=== PATIENT | female | born 1975 | race Caucasian/White ===

== ENCOUNTER → 2017-03-04 09:51 | Outpatient (CLI) | payer BC ==
--- NOTE | 2017-03-04 10:54 | NUR ---
Nutrition education for bariatric surgery: S: Pt reports she lost 140# by diet and exercise 9 years ago but was unable to keep the weight off when her mother became ill. Pt loves to eat bread. Pt does not drink carbonated anything and does not like sweet foods. 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 O: 41 year old female with no medical issues Ht: 5'5" Wt: 250# IBW: 125# +/-10% BMI: 41.6 Pts highest adult wt: 270# Pts lowest adult wt: 130# A/P: Reviewed pre/post of diet, homework. Discussed post-op diet phases; liquids between meals; 3 ounce meal size; 1/2 cup stomach size; vitamin, mineral, calcium, vitamin D supplements for life; protein needs; reviewed sample menus; no straws, carbonation, alcohol; pouch stretching; problematic foods. Pt with very good understanding of information provided. RDN feels pt is going to make the necessary diet changes needed to be successful with long-term weight loss and maintenance. Provided pt with printed diet information and RDN name and phone number. RDN will be available if needed. Thank you for the consult.
== END ==
LOC: D.FANS 02-12 09:00
DX: Z01.818 Encounter for other preprocedural examination (principal)

== ENCOUNTER → 2017-03-14 07:59 | Outpatient (CLI) | payer BC | END | disposition home or self-care (01) | LOC: D.RAD 07:59 | DX: E66.01 Morbid (severe) obesity due to excess calories (principal); Z68.41 Body mass index [BMI] 40.0-44.9, adult ==

== ENCOUNTER 2017-04-25 09:33 | Day surgery (SDC) | payer BC ==
[~2017-04-25] VITALS: Ht 162.6 cm; Wt 107.3 kg
[2017-04-25] MEDS ORDERED: IBUPROFEN800 MG PO (10:31)
[2017-04-25 10:39] VITALS: BP 138/65; Ht 162.6 cm; Wt 107.3 kg
[2017-04-25 11:12] LABS: HEMATOCRIT 37.4 % (36.0-48.0); HEMOGLOBIN 11.8 g/dL (12-16); MCH 24.9 pg (26.0-34.0); MCHC 31.6 g/dL (31.0-37.0); MCV 78.9 fL (80.0-100.0); MEAN PLATELET VOLUME 11.2 fL (7.4-10.4); PLATELET COUNT 230 10x3/uL (130-400); RBC 4.74 10x6/uL (4.00-5.40); RDW 16.7 % (11.5-14.5); WBC 4.4 10x3/uL (4.8-10.8)
[2017-04-25 11:28] LABS: HCG SERUM NEGATIVE (NEGATIVE)
[2017-04-25 12:20] LABS: EOSINOPHILS 2 % (0-7); LYMPHOCYTES 24 % (15-50); MONOCYTES 6 % (2-11); NEUTROPHILS 66 % (40-80); PLATELET ESTIMATE NORMAL
--- NOTE | 2017-04-25 13:43 | NUR ---
1342 BACK FROM EGD. AWAKE AND TALKING RESP EVEN AND NONLABORED.
--- NOTE | 2017-04-25 18:53 | NUR ---
150-DR PEREZ TO SEE PATIENT AND REPORT ON PROCEDURE. 1515-D/C HOME AMBULATORY PER REQUEST
== END 2017-04-25 15:15 | disposition home or self-care (01) ==
LOC: D.OPS 09:33
PROVIDERS: Anesthesiology
DX: E66.01 Morbid (severe) obesity due to excess calories (principal); Z68.41 Body mass index [BMI] 40.0-44.9, adult; K29.50 Unspecified chronic gastritis without bleeding; K20.9 Esophagitis, unspecified; Z98.84 Bariatric surgery status; Z01.812 Encounter for preprocedural laboratory examination

== ENCOUNTER 2017-06-02 05:07 | Inpatient (IN) | payer BC ==
[2017-05-30 12:31] LABS: HEMATOCRIT 39.3 % (36.0-48.0); HEMOGLOBIN 12.3 g/dL (12-16); MCH 24.7 pg (26.0-34.0); MCHC 31.3 g/dL (31.0-37.0); MCV 79.1 fL (80.0-100.0); MEAN PLATELET VOLUME 11.8 fL (7.4-10.4); RBC 4.97 10x6/uL (4.00-5.40); RDW 16.2 % (11.5-14.5)
[~2017-06-02] VITALS: Ht 162.6 cm; Wt 119.1 kg
[2017-06-02] VITALS (13 sets, daily range): BP systolic 78–144; BP diastolic 48–79; BMI 40.9
[~2017-06-02 05:07] MED LIST: IBUPROFEN800 MG PO; MULTIPLE VITAMI1 TA1 PO
--- NOTE | 2017-06-02 11:00 | NUR ---
RECEIVED TO FLOOR FROM RECOVERY, DIRECTOR OF CONSERVATION SET UP, BED LOWEST POSITION, CALL LIGHT IN REACH, WILL CONTINUE TO MONITOR
--- NOTE | 2017-06-02 14:04 | OP ---
PATIENT NAME: CHERELLE STERLING MEDICAL RECORD: [id number] :73 LOCATION:[id number] ADMISSION DATE:06/02/17 SURGEON: DANILO PEREZ MD DATE OF OPERATION: 06/02/2017 SURGEON: Danilo Perez MD PREOPERATIVE DIAGNOSIS: Morbid obesity. POSTOPERATIVE DIAGNOSIS: Morbid obesity. PROCEDURES PERFORMED: 1. Revision of previous sleeve gastrectomy. 2. Pylorus sparing gastric bypass. ANESTHESIA: General. COMPLICATIONS: None. SPECIMENS: None. Case was clean contaminated. ESTIMATED BLOOD LOSS: 30 cc. OPERATIVE COURSE: After consent was obtained, the patient was taken to the operating room and placed in the supine position on the operating table. Next, general anesthesia was given via endotracheal intubation after a timeout was taken to confirm the correct patient and procedure. The abdomen was then prepped and draped in typical sterile fashion. Local anesthetic was injected just above the umbilicus. A stab incision was made with 11-blade scalpel. Using a 5 mm bladeless optical trocar, the abdomen was entered under direct laparoscopic vision. Adequate pneumoperitoneum was achieved. The abdominal cavity was inspected. No evidence of bowel injury. No evidence of bleeding. At this time, the patient was placed in the steep reverse Trendelenburg position. All the remaining trocars were placed, the abdomen was entered under direct laparoscopic vision. Two 5 mm trocars in the left lateral quadrant, 5 mm and 12 mm trocar in the right lateral quadrant and Carisa liver retractor in subxiphoid position. The left lobe of the liver was grasped and elevated. At this time, the previous sleeve gastrectomy was dissected along the antrum and pylorus. Dissection continued posteriorly along the first portion of the duodenum until approximately 2 cm of the duodenum were mobilized. At this time, the first portion of the duodenum was transected with a green load 60 mm KELLY stapler. Next, the terminal ileum was identified, 250 cm of small bowel were counted. At 250 cm from the terminal ileum, multiple 3-0 Vicryl stay sutures were used to saw the duodenum to the jejunum. Next, a backwall continuous, running suture was created using 3-0 PDS, the outer layer of the backwall was created with 3-0 Stratafix PDS suture. Enterotomies were made in the both limbs in the jejunum and duodenum. The inner layer was then closed with 3-0 PDS Stratafix suture. This was continued anteriorly creating a single layer anastomosis. The anterior layer was imbricated using 3-0 Vicryl suture. The ViSiGi device was placed in the stomach. Bowel clamps were placed in the efferent limbs of the jejunum. The stomach was inflated. Water was placed over the anastomosis, a small leak was identified. The area in question was reinforced with additional 3-0 Vicryl suture. Repeatedly test was performed, OPERATIVE REPORT [id number] CHERELLE STERLING which showed no evidence of leak. The duct was removed. The ViSiGi device was placed to suction after the bowel was decompressed. The ViSiGi device was removed and the suction removed from the abdomen. At this time, the remaining portion of the abdomen was copiously irrigated and suctioned. Careful attention was paid to hemostasis. The entire abdominal cavity was inspected. There was no evidence of bowel injury. No evidence of bleeding. At this time, all remaining instruments were removed from the abdomen. The 12 mm and 11 mm trocar site were closed with an 0 Vicryl suture and a Stu-Elvia suture passer under direct laparoscopic vision. At this time, all remaining instruments were removed. The abdomen was desufflated. Trocars were removed. Skin was closed with 4-0 Monocryl, Mastisol and Steri-Strips. At the end of the case, all needle and instrument counts were correct. No complications occurred. The patient extubated and transferred to the PACU in stable condition. TRANSINT:[id number] Voice Confirmation ID: [id number] DOCUMENT ID: [id number] DANILO PEREZ MD at 1404 CC: [id number] DICTATION DATE: 06/02/17 1029 PUBLIC UTILITIES SALES REPRESENTATIVE: 06/02/17 1248 ADM IN [place] [id number] [place] [address]
--- NOTE | 2017-06-02 15:05 | OP ---
PATIENT NAME: CHERELLE STERLING MEDICAL RECORD: [id number] :73 LOCATION:[facility] ADMISSION DATE:06/02/17 SURGEON: SEGUNDO BENDER MD DATE OF OPERATION: 06/02/2017 Operative and Assistance Note I assisted Dr. Hays with a SIPS procedure. I scrubbed in after the trocars and the liver retractor had been placed. My involvement in the procedure was some assistance with dissection, retraction of tissues, running the camera some, irrigation and aspiration. I sewed a portion of the gastrojejunal anastomosis. Then, I assisted with closure of the skin incisions. TRANSINT:[id number] Voice Confirmation ID: [id number] DOCUMENT ID: [id number] SEGUNDO BENDER MD at 1505 CC: [id number] DICTATION DATE: 06/02/17 1108 ONLINE MARKETING MANAGER: 06/02/17 1243 ADM IN [facility] [address] [place] [address]
--- NOTE | 2017-06-02 19:15 | NUR ---
PT IS SITTING ON COMMODE, HAD COME BACK FROM SURGERY AT 11, STILL UNABLE TO URINATE, PT PAIN IS AT A 10 FROM SCALE OF 0-10 WITH 10 BEING THE WORSE, GAVE PT BOLUS, 2MG ASSISTED PT BACK IN BED ADVISED WILL NEED TO DO A BLADDAR SCAN
--- NOTE | 2017-06-02 22:30 | NUR ---
CAME TO CHECK ON PT, PAIN IS STILL AT A 10 FROM SCALE OF 0-10 GAVE PT ANOTHER BOLUS 2MG, PT STILL HAS NOT URINATED, WILL DO BLADDAR SCAN
--- NOTE | 2017-06-02 23:44 | NUR ---
PATIENT STATED SHE HAS NOT VOIDED ALL DAY. DID A BLADDER SCAN, SHE HAD 315ML. ASKED PATIENT IF SHE IS WILLING TO TAKE A WALK IN THE [place], SHE ASKED IF SHE CAN TRY TO URINATE FIRST. ASSISTED PATIENT SITTING UP ON THE SIDE OF THE BED. SHE VERBALIZED FEELING DIZZY. SHE STATED "EVERYTIME I SIT UP I GET REALLY DIZZY." PATIENT SAT UP FOR ABOUT 3 MINUTES BEFORE FEELING THE DIZZINESS SUBSIDE. ASSISTED PATIENT UP THE BATHROOM. TURNED THE SHOWER ON, FOR THE NOISE TO HELP PATIENT VOID. SHE STATED SHE WANTS TO SIT THERE FOR AWHILE. TOLD PATIENT TO PULLED THE BATHROOM EMERGENCY STRING WHEN SHE IS FINISHED. SHE AGREED. IN ROOM.
[2017-06-03] VITALS: BP 133/73
--- NOTE | 2017-06-03 00:04 | NUR ---
SPOKE WITH ABOUT PATIENT. SEE ORDERS.
--- NOTE | 2017-06-03 00:12 | NUR ---
CHECKED IV PATENCY. FLUSHED WITH A 10ML FLUSH AND ASPIRATED BLOOD RETURN. STARTED THE FIRST BOLUS.
--- NOTE | 2017-06-03 01:15 | NUR ---
PT 1ST N/S BOLUS COMPLETE, STARTED SECOND BAG. STATED FEELS BETTER BUT STILL NO URGE TO URINATE WILL CONTINUE TO MONITOR
[2017-06-03 04:00] VITALS: BP 132/78
--- NOTE | 2017-06-03 04:00 | NUR ---
IN AND OUT CATH PERFORMED AT THIS TIME. NO DIFFICULTY WITH INSERTION. RECIEVED BACK 850ML CONCENTRATED, DARK URINE. PT TOLERATED WELL.
--- NOTE | 2017-06-03 05:34 | NUR ---
CHIEF WHARFINGER CAME AND ADVISED PT BP WAS TAKEN IN 3 DIFFERENT PLACES WITH DIFFERENT READINGS AND PT PULSE IS HIGH, TOOK PT'S BLOD PRESSURE MANUALLY AND BP IS AT 132/78 PULSE WAS AT 128. PT IS CONCERNED DUE TO HX OF HEART PROBLEMMS ON FATHER'S SIDE. PT STATED SHE WILL TRY AND REST UNTIL DOCTOR ARRIVES IN MORNING. I&O COMPLETED, ABLE TO DRAW 850. PT STATED ABD AREA STILL PAINFUL. CONTINUE TO MONITOR
--- NOTE | 2017-06-03 07:46 | NUR ---
AM ROUNDS - PT AWAKE IN BED. NO YELLOW BAND ON. SCD ARE OFF AT THIS TIME. PT C/O PAIN TO ABD/BACK. IV TO LEFT HAND, LR AT 150CC/HR AND MORPHINE WEIGHING STATION OPERATOR. BED AT LOWEST POSITION. SIDE RAILS UP X2. CALL CHRISTIANSON IN USE. WILL CONTINUE TO MONITOR
--- NOTE | 2017-06-03 07:53 | NUR ---
Patient Name: CHERELLE STERLING Admission Status: Elective Accout number: [id number] Admission Date: 06-02-2017 : 1975 Admission Diagnosis: Attending: KATY Current LOS: 1 Anticipated DC Date: 06-04-2017 Planned Disposition: Home Primary Insurance: [employer] [place] Discharge Planning Comments: CM MET WITH PATIENT REGARDING D/C NEEDS AND PLANS. PATIENT STATED SHE LIVES WITH HER (VANESSA) AND HE WILL DRIVE HER HOME AT DISCHARGE. PATIENT STATED THERE ARE 3 STEPS TO ENTER HOME AND ONE STAIRCASE W/RAILS INSIDE. PATIENT STATED SHE DOES NOT HAVE TO USE STAIRCASE. PATIENT IS INDEPENDENT WITH HER CARE AND HAS NO DME AT HOME. PATIENTS PCP DR. BRAMBILA AT [facility] IN [place]. (PATIENT SPELLED THE NAME). PATIENTS PHARMACY IS [facility]. PATIENT DOES NOT WANT HOME HEALTH AT THIS TIME. CM WILL CONTINUE TO FOLLOW PATIENT WITH D/C NEEDS AND PLANS. PCP DR. BRAMBILA AT [facility] - [phone] VANESSA (SPOUSE) [phone] Medical Director Occupational Health: Neginadama Zafar Is the patient Alert and Oriented? Yes 0 * How many steps to enter\exit or inside your home? 3 0 * PCP DR. BRAMBILA [facility] PATIENT SPELLED THE NAME 0 * Pharmacy [facility] 0 * Preadmission Environment Home with Family 0 * ADLs Independent 0 * Equipment None 0 * List name and contact numbers for known caregivers / representatives who currently or will assist patient after discharge: VANESSA (SPOUSE) [phone] * Community resources currently utilized None 0 * Additional services required to return to the preadmission environment? Yes 0 * Can the patient safely return to the preadmission environment? Yes 0 * Has this patient been hospitalized within the prior 30 days at any hospital? No 0 Grand Total: 0
--- NOTE | 2017-06-03 08:00 | NUR ---
PT AOX4 RESP EVEN AND NONLABORED PT DENIES NEEDS AT THIS TIME IV TO LEFT HAND PATENT AND INTACT AT THIS TIME SRX2 BED AT LOWEST POSITION CALL LIGHT WITHIN REACH WILL CONTINUE TO MONITOR
[2017-06-03 11:42] LABS: ALBUMIN 2.9 g/dL (3.4-5.0); ANION GAP 17.6 mmol/L (8-16); BILIRUBIN - TOTAL 0.86 mg/dL (0.2-1.3); CALCIUM 7.6 mg/dL (8.5-10.1); CARBON DIOXIDE 20.3 mmol/L (21.0-32.0); CREATININE - SERUM 1.1 mg/dL (0.6-1.3); MAGNESIUM - SERUM 1.7 mg/dL (1.8-2.4); POTASSIUM - SERUM 3.9 mmol/L (3.5-5.1); PROTEIN - SERUM 6.8 g/dL (6.4-8.2)
--- NOTE | 2017-06-03 15:28 | NUR ---
NUTRITION MONITORING & EVAL CHART REVIEWED, PT VISIT. PT WITH NO QUESTIONS ~ DIET. PT STATES SHE UNDERSTANDS DIET INFORMATION. RD FOLLOWING
--- NOTE | 2017-06-03 21:29 | NUR ---
SPOKE WITH MATIAS IN RT, PER EKG PT IS TACHYCARDIC WHEN AWAKE IN IN PAIN, WHEN SLEEPING HR IS BACK DOWN TO 60. PT RESP IS AT 89 RT PUT 3L ON AND PT BACK UP TO 97 WHEN SHE LOWERED IT TO 2L PT WENT BACK DOWN TO 93. PT IS LYING IN BED EYES CLOSED AND RESTING, WILL CONTINUE TO MONITOR PT
[2017-06-03 23:59] VITALS: BP 140/89
[2017-06-04] VITALS (13 sets, daily range): BP systolic 100–149; BP diastolic 23–100; Ht 162.6 cm; Wt 119.1 kg
[2017-06-04 06:58] LABS: BASOPHILS 0 % (0-2); EOSINOPHILS 0 % (0-7); HEMATOCRIT 40.2 % (36.0-48.0); HEMOGLOBIN 12.4 g/dL (12-16); IMMATURE GRANULOCYTES 0.4 % (0-5); LYMPHOCYTES 2.6 % (15-50); MCH 24.7 pg (26.0-34.0); MCHC 30.8 g/dL (31.0-37.0); MCV 80.1 fL (80.0-100.0); MEAN PLATELET VOLUME 11.1 fL (7.4-10.4); MONOCYTES 9.2 % (2-11); NEUTROPHILS 87.8 % (40-80); RBC 5.02 10x6/uL (4.00-5.40); WBC 13.3 10x3/uL (4.8-10.8)
[2017-06-04 07:01] LABS: PLATELET COUNT 287 10x3/uL (130-400)
[2017-06-04 07:18] LABS: ALBUMIN 2.5 g/dL (3.4-5.0); BILIRUBIN - TOTAL 0.75 mg/dL (0.2-1.3); CALCIUM 7.6 mg/dL (8.5-10.1); CARBON DIOXIDE 22.1 mmol/L (21.0-32.0); POTASSIUM - SERUM 4.1 mmol/L (3.5-5.1); PROTEIN - SERUM 6.5 g/dL (6.4-8.2)
--- NOTE | 2017-06-04 07:46 | NUR ---
PT AWAKE AND ALERT. HOB AT 45 DEGREES. PT ON 5L O2 VIA NASAL CANULA. O2 SAT 97. TACHYCARDIC PULSE RATE 133. RATES PAIN 10/10. MORPHINE RUG DYER HELPER IN USE 1MG Q 10MIN WITH 10MG/4HR LOCK OUT. R-FOREARM PERIPHERAL IV WITH LR @ 150ML/HR. IN THE ROOM. PT TRANSPORTED TO OR FOR DIAGNOSTIC LAPOROSCOPIC PROCEDURE.
--- NOTE | 2017-06-04 08:42 | NUR ---
DR PEREZ DECIDED AND PLACED CVL AFTER GENERAL ANESTHESIA, PABLO.
--- NOTE | 2017-06-04 11:30 | NUR ---
PT TO ICU AT THIS TIME FROM RECOVERY. PT ALERT AND ORIENTED, STILL TIRED. S1S2 NOTED, ST PER CM. BREATHING SHALLOW, 02 ACCEPTABLE. FAMILY TO BEDSIDE TO SEE PT. SEE SHIFT ASSESSMENT FOR DETAILS.
--- NOTE | 2017-06-04 11:37 | NUR ---
CONSULTED ANESTHESIA REGARDING ELEVATED HEART RATE 135 BPM. GIVEN VERBAL ORDERS PER DR TOLBERT TO GIVE METOPROLOL 5MG IV X1.
[2017-06-04 12:31] LABS: BASOPHILS 0 % (0-2); EOSINOPHILS 0 % (0-7); HEMATOCRIT 32.2 % (36.0-48.0); IMMATURE GRANULOCYTES 0.2 % (0-5); LYMPHOCYTES 11.7 % (15-50); MCH 24.8 pg (26.0-34.0); MCHC 31.1 g/dL (31.0-37.0); MCV 79.9 fL (80.0-100.0); MEAN PLATELET VOLUME 11.3 fL (7.4-10.4); MONOCYTES 9.4 % (2-11); NEUTROPHILS 78.7 % (40-80); PLATELET COUNT 240 10x3/uL (130-400); RBC 4.03 10x6/uL (4.00-5.40); WBC 4.7 10x3/uL (4.8-10.8)
[2017-06-04 12:46] LABS: ANION GAP 11.8 mmol/L (8-16); CARBON DIOXIDE 19.5 mmol/L (21.0-32.0); CREATININE - SERUM 1.7 mg/dL (0.6-1.3); POTASSIUM - SERUM 4.3 mmol/L (3.5-5.1)
[2017-06-04 12:49] LABS: CALCIUM 6.3 mg/dL (8.5-10.1)
--- NOTE | 2017-06-04 12:50 | NUR ---
GIVEN VERBAL ORDERS TO TRANSFER THIS PATIENT TO ICU PER DR PEREZ.
--- NOTE | 2017-06-04 13:00 | NUR ---
DEVELOPMENT INTERN PUMP IN PLACE, PT PAIN SEEMS MANAGABLE AT THIS TIME. PT DENIES ANY OTHER NEEDS, WILL CONT TO MONITOR.
--- NOTE | 2017-06-04 13:02 | NUR ---
CALLED LEARNING DISABILITIES TEACHER, ISABELL GUILLORY RN AT 1115 TO INFORM HIM TO CHANGE THIS PATIENT'S STATUS FROM A REGULAR FLOOR BED TO AN ICU BED. HE WILL CALL US BACK WITH A ROOM.
--- NOTE | 2017-06-04 15:00 | NUR ---
PT FAMILY AT BEDSIDE FOR VISITATION. UPDATE PROVIDED. PT RESTING COMFORTABLY.
--- NOTE | 2017-06-04 17:00 | NUR ---
PT RECD PRN MEDICATION, HR LOWER BUT REMAINS ST.
--- NOTE | 2017-06-04 17:06 | OP ---
PATIENT NAME: CHERELLE STERLING MEDICAL RECORD: [id number] :73 LOCATION:[facility] D.2307 ADMISSION DATE:06/02/17 SURGEON: DANILO PEREZ MD DATE OF OPERATION: 06/04/2017 SURGEON: Danilo Perez MD. PREOPERATIVE DIAGNOSES: 1. Peritonitis. 2. Anastomotic leak. POSTOPERATIVE DIAGNOSES: 1. Peritonitis. 2. Anastomotic leak. PROCEDURES PERFORMED: 1. Diagnostic laparoscopy with conversion to exploratory laparotomy. 2. Abdominal washout. 3. Revision of duodenojejunostomy anastomosis. 4. Insertion of a left subclavian central venous line. ANESTHESIA: General. COMPLICATIONS: None. SPECIMENS: Small bowel. Case was grossly contaminated. OPERATIVE COURSE: After consent was obtained, the patient was taken to the operating room and placed in supine position on the operating table. Next, general anesthesia was given via endotracheal intubation after a timeout was performed to confirm the correct patient and procedure. Thereafter, the abdomen was prepped and draped in typical sterile fashion. Previous incisions were opened with an 11-blade scalpel. An 11-mm bladeless optical trocar was placed in the supraumbilical position. The abdomen was entered under direct laparoscopic vision. Adequate pneumoperitoneum was achieved. There was gross peritonitis in the abdomen. There was a large amount of fluid within the abdominal cavity. At this time, the Carisa retractor was re-placed, as well as the 12-mm trocar and 5-mm trocar in the right lateral quadrant under direct laparoscopic vision. The bowel was meticulously and slowly mobilized, exposing the duodenojejunostomy anastomosis. There was a significant amount of purulent exudate. When the stomach was mobilized, there was a small hole in the posterior suture line due to the extensiveness of the peritonitis and bile duct dilatation, I did not feel safe to proceed laparoscopically. At this time, all instruments and trocars were removed. A small upper midline incision was made. Dissection continued to the level of the midline fascia using electrocautery. The midline fascia was opened with a 15-blade scalpel. The remaining portion of the incision was then opened under direct vision with electrocautery. An Damian retractor was placed. The stomach and small bowel anastomosis were extracorporealized. The sutures were removed with Metzenbaum scissors. A small bowel resection was performed using the KELLY linear cutting stapler. Next, we traveled approximately 50 cm proximal to the small bowel anastomosis. We freshened the edges of the first portion of the duodenum with Metzenbaum scissors. A hand-sewn duodenojejunostomy was performed using 3-0 Vicryl suture. OPERATIVE REPORT [id number] CHERELLE STERLING Tay The suture line was then imbricated in a Lembert fashion using 3-0 Vicryl suture. The abdomen was irrigated with approximately 4 L of warm normal saline. A TATO drain was placed through the left upper quadrant trocar and placed posterior to the duodenojejunostomy. A second TATO drain was placed through the right lateral 5-mm trocar and placed in the pelvis to drain all remaining irrigation. At this time, additional irrigation was performed. There was no evidence of bowel injury. No evidence of bleeding, no evidence of leak. At this time, the midline incision was then closed with #1 looped PDS. Skin was closed with bety. TATO drains were secured with 2-0 nylon suture. At the end of the case, all needle and instrument counts were correct. No complications occurred. The patient extubated and transferred to the PACU in stable condition. TRANSINT:[id number] Voice Confirmation ID: [id number] DOCUMENT ID: [id number] DANILO PEREZ MD at 1706 CC: [id number] DICTATION DATE: 06/04/17 1017 DIRECTOR OF SPA AND GUEST EXPERIENCE: 06/04/17 1410 ADM IN [place] [id number] [place] [address]
--- NOTE | 2017-06-04 19:20 | NUR ---
ASSESSMENT COMPLETE. S1S2. SINUS TACHYCARDIA SHOWING ON MONITOR. PT C/O PAIN TO ABD. LAP SITES X6. 2 TATO DRAIN TO RIGHT AND LEFT LOWER ABD; COMPRESSED BLOODY DRAINAGE NOTED. RADIAL AND PEDAL PULSES PALPATED. ON 5L NC O2 SAT 100%. BRENNAN IN PLACE; DARK URINE ON COLLECTION BAG. RIGHT HAND PIV D/C'D WITH CATH INTACT. DRESSING APPLIED. SCD IN PLACE. LEFT SUBCLAVIAN CVL; PATENT. AAO. PERRLA.
--- NOTE | 2017-06-04 20:37 | NUR ---
PT UP OUT OF BED PER ORDERS. PT HAD DIFFICULTY GETTING TO BEDSIDE TO STAND. 2 PERSON ASSIST. C/O SLIGHT DIZZINESS. SAT AT BEDSIDE UNTIL RESOLVED. AMBULATED TO CHAIR. BALANCE STEADY. SHUFFLED GAIT; BUT HELD STANCE. C/O SOB UPON SITTING IN CHAIR. O2 SAT 100% ON 6L NC. TACHYPNEA NOTED; RESOLVED AFTER A FEW MINUTES.
--- NOTE | 2017-06-04 21:30 | NUR ---
NO FAMILY OR VISITORS DURING VISITATION.
--- NOTE | 2017-06-04 22:00 | NUR ---
PT SITTING IN CHAIR AT BEDSIDE. SLIGHTLY DROWSY. RESPONDS TO VERBAL STIMULI.
--- NOTE | 2017-06-04 23:15 | NUR ---
REASSESSMENT COMPLETE. NO ACUTE CHANGES FROM PREVIOUS ASSESSMENT. NO DISTRESS NOTED. SEE FLOW SHEET FOR DETAILS.
--- NOTE | 2017-06-04 23:30 | NUR ---
PT ASSISTED BACK TO BED. 2 PERSON ASSIST. PT HAD INCREASE IN BALANCE AND STEADIER GAIT. WEAKNESS NOTED. PT C/O SOB ON EXERTION.
[2017-06-05] VITALS (15 sets, daily range): BP systolic 117–158; BP diastolic 55–96
--- NOTE | 2017-06-05 03:10 | NUR ---
REASSESSMENT COMPLETE. NO ACUTE CHANGES FROM PREVIOUS ASSESSMENT. VSS. NO DISTRESS NOTED. WILL CONTINUE TO MONITOR.
[2017-06-05 04:24] LABS: BASOPHILS 0 % (0-2); EOSINOPHILS 0 % (0-7); HEMOGLOBIN 8.9 g/dL (12-16); IMMATURE GRANULOCYTES 0.3 % (0-5); LYMPHOCYTES 6.3 % (15-50); MCH 25.1 pg (26.0-34.0); MCHC 31.8 g/dL (31.0-37.0); MCV 78.9 fL (80.0-100.0); MEAN PLATELET VOLUME 11.3 fL (7.4-10.4); NEUTROPHILS 86.4 % (40-80); PLATELET COUNT 197 10x3/uL (130-400); RBC 3.55 10x6/uL (4.00-5.40); RDW 17.3 % (11.5-14.5); WBC 5.8 10x3/uL (4.8-10.8)
[2017-06-05 04:40] LABS: ANION GAP 11.8 mmol/L (8-16); CARBON DIOXIDE 21.8 mmol/L (21.0-32.0); MAGNESIUM - SERUM 1.7 mg/dL (1.8-2.4); POTASSIUM - SERUM 4.6 mmol/L (3.5-5.1)
[2017-06-05 04:44] LABS: CALCIUM 6.9 mg/dL (8.5-10.1); CREATININE - SERUM 2.2 mg/dL (0.6-1.3)
--- NOTE | 2017-06-05 05:07 | NUR ---
PT RESTING; EYES CLOSED. VSS. NO DISTRESS NOTED. PRN LOPRESSOR GIVEN PER ORDERS. SEE EMAR FOR DETAILS.
--- NOTE | 2017-06-05 07:00 | NUR ---
PT ATTEMPTING TO REST AT THIS TIME WITH NO COMPLAINTS. COMPLETE SHIFT ASSESSMENT DOCUMENTED PER FLOWSHEET. VITAL SIGNS STABLE. CUPS THROWN AWAY IN ROOM DUE TO NPO ORDER. WILL VERIFY WITH DR PEREZ.
--- NOTE | 2017-06-05 08:00 | NUR ---
DR PEREZ STATES PT IS TO BE NPO WITH ICE CHIPS. TRANSFER ORDERS IN COMPUTER AND FAXED TO WEB MACHINE TENDER. VITAL SIGNS STABLE. WILL CONTINUE TO MONITOR
--- NOTE | 2017-06-05 12:30 | NUR ---
PT UP TO CHAIR WITH MODERATE ASSISTANCE. GIVEN TRAY WITH ICE CHIPS PER REQUEST. CALL LIGHT WITHIN REACH AND PT USING COLLECTION ADMINISTRATOR NEEDED. VITAL SIGNS STABLE.
--- NOTE | 2017-06-05 15:00 | NUR ---
PT REMAINS UP IN CHAIR AND RESTING AT THIS TIME. NO CHANGES FROM PREVIOUS DOCUMENTATION. WILL CONINUE TO MONITOR. VITAL SIGNS STABLE
--- NOTE | 2017-06-05 19:00 | NUR ---
REPORT REC'D, PT CARE ASSUMED. ASSESSMENT COMPLETED PER FLOW SHEETS. PT SITTING IN CHAIR WATCHING TV, A/OX4, C/O PAIN TO ABD 5 ON SCALE 1 TO 10, DEDICATED DRIVER PUMP USES, ST ON CM WITH HR AT 106, LUNG SOUNDS DIMINISHED TO ALL [place], O2SAT 97% ON 2L VIA NC, UNLABORED. LEFT CVL INTACT CLEAN AND DRY, INFUSING IV FLUIDS PER ORDER. ABD INCISIONS SITE C,D,I, TATO DRAINS X2 INTACT TO GRAVITY, BULBS COMPRESSED. BRENNAN INTACT TO GRAVITY WITH CONC, YELLOW DRAINAGE TO BAG. PPP, CALL LIGHT AND BST IN REACH. CONT TO MONITOR.
--- NOTE | 2017-06-05 21:00 | NUR ---
ASSISTED PT BACK TO BED FROM CHAIR WITH X2 NURSES. TREE DOCTOR USED PER PT BEFORE TRANSFER. REPOSITONED IN BED FOR COMFORT. PILLOWS IN USE FOR SUPPORT. CALL LIGHT IN REACH. ICE CHIPS PROVIDED PER REQUEST. CPOC.
--- NOTE | 2017-06-05 23:00 | NUR ---
REASSESSMENT COMPLETED. SEE FLOW SHEETS FOR ALL FINDINGS. NO ACUTE SIGNS OF DISTRESS NOTED. VSS. SR ON CM. REPOSITIONED SELF IN BED FOR COMFORT. SURGICAL NURSE PRACTITIONER USES PRN. CALL LIGHT IN REACH. CPOC.
[2017-06-06] VITALS (13 sets, daily range): BP systolic 125–148; BP diastolic 60–91
--- NOTE | 2017-06-06 01:00 | NUR ---
PT RESTING QUIETLY WITHOUT DISTRESS. VSS, NO NEEDS VOICES AT THIS TIME. CALL LIGHT IN REACH. CPOC,.
--- NOTE | 2017-06-06 03:00 | NUR ---
REASSESSMENT COMPLETED PER FLOW SHEETS. PT RESTING QUIETLY WITHOUT DIFFIC. NO ACUTE CHANGES NOTED ON PT'S STATUS. SR ON CM, VSS. NO NEEDS VOICES AT THIS TIME. CALL LIGHT IN REACH. CPOC.
[2017-06-06 05:08] LABS: BASOPHILS 0 % (0-2); EOSINOPHILS 1.8 % (0-7); HEMATOCRIT 23.8 % (36.0-48.0); HEMOGLOBIN 7.6 g/dL (12-16); IMMATURE GRANULOCYTES 0.9 % (0-5); LYMPHOCYTES 9.6 % (15-50); MCH 24.8 pg (26.0-34.0); MCHC 31.9 g/dL (31.0-37.0); MCV 77.5 fL (80.0-100.0); MEAN PLATELET VOLUME 10.3 fL (7.4-10.4); MONOCYTES 5.7 % (2-11); PLATELET COUNT 170 10x3/uL (130-400); RBC 3.07 10x6/uL (4.00-5.40); RDW 17.5 % (11.5-14.5); WBC 4.6 10x3/uL (4.8-10.8)
[2017-06-06 05:17] LABS: CARBON DIOXIDE 22.8 mmol/L (21.0-32.0); CREATININE - SERUM 1.7 mg/dL (0.6-1.3)
[2017-06-06 05:19] LABS: MAGNESIUM - SERUM 2.4 mg/dL (1.8-2.4); POTASSIUM - SERUM 3.8 mmol/L (3.5-5.1)
--- NOTE | 2017-06-06 08:14 | NUR ---
UP IN BED RESTING AT THIS TIME. NO ACUTE DISTRESS NOTED. RESPITATIONS STEADY AND UNLABORED. AWAKENS WHEN SPOKEN TO. NO ACTIVE BLEEDING NOTED. WILL CONTINUE PLAN OF CARE.
--- NOTE | 2017-06-06 08:38 | NUR ---
DR PEREZ HERE SEEING PT AT THIS TIME, ORDERS RECIEVED.
--- NOTE | 2017-06-06 09:49 | NUR ---
RT TATO DRAIN DC AT THIS TIME PER ORDERS. NOTED 15ML CLEAR RED FLUID INTO TATO DRAIN WHEN DCD. PT SITTING UP IN CHAIR BESIDE BED AT THIS TIME. NO ACUTE DISTRESS NOTED. WILL CONTINUE PLAN OF CARE.
--- NOTE | 2017-06-06 10:17 | NUR ---
Nutrition follow-up: Diet advanced to post-gastrectomy bariatric diet (30 ml Q 30 minutes) Wt: 255# Labs reviewed RDN following.
[2017-06-06 12:06] LABS: BASOPHILS 0 % (0-2); EOSINOPHILS 3.4 % (0-7); HEMATOCRIT 23.9 % (36.0-48.0); HEMOGLOBIN 7.6 g/dL (12-16); IMMATURE GRANULOCYTES 0.8 % (0-5); LYMPHOCYTES 12.8 % (15-50); MCH 24.7 pg (26.0-34.0); MCHC 31.8 g/dL (31.0-37.0); MCV 77.6 fL (80.0-100.0); MEAN PLATELET VOLUME 9.7 fL (7.4-10.4); MONOCYTES 4.6 % (2-11); NEUTROPHILS 78.4 % (40-80); PLATELET COUNT 165 10x3/uL (130-400); RBC 3.08 10x6/uL (4.00-5.40); RDW 17.6 % (11.5-14.5); WBC 4.8 10x3/uL (4.8-10.8)
[2017-06-06 12:25] LABS: ANION GAP 12.5 mmol/L (8-16); CALCIUM 7.2 mg/dL (8.5-10.1); CREATININE - SERUM 1.6 mg/dL (0.6-1.3); POTASSIUM - SERUM 3.5 mmol/L (3.5-5.1); VANCOMYCIN - TROUGH 19.7 ug/mL (10.0-20.0)
--- NOTE | 2017-06-06 12:48 | NUR ---
UP IN CHAIR IN ROOM WATCHING TV AT THIS TIME. FAMILY AT BEDSIDE. NO ACUTE DISTRESS NOTED. PT DENIES ANY NEEDS. WILL CONTINUE PLAN OF CARE.
--- NOTE | 2017-06-06 13:26 | NUR ---
LEFT UNIT FOR CT AT THIS TIME. NO ACUTE DISTRESS NOTED. LEFT VIA WHEELCHAIR ACCOMPANINED BY HOSPITAL STAFF. WILL CONTINUE PLAN OF CARE.
[2017-06-06] MEDS ORDERED: MEPERIDINE HCL50 MG PO (13:42)
[2017-06-06] MEDS ORDERED: LEVAQUIN500 MG PO (13:42)
--- NOTE | 2017-06-06 13:46 | NUR ---
RETURNED FROM CT AT THIS TIME VIA WHEELCHAIR AT THIS TIME. TOTAL LINEN CHANGE PROVIDED AT THIS TIME. DR PEREZ ON FLOOR MAKING ORDERS AT THIS TIME. NOTIFIED OF LOW H&H, NO NEW ORDERS. NO ACUTE DISTRESS NOTED. WILL CONTINUE PLAN OF CARE.
[2017-06-06] MEDS ORDERED: ZOFRAN ODT4 MG/UDTAB PO (14:02)
--- NOTE | 2017-06-06 14:21 | NUR ---
PER DR PEREZ: PABLITO BRENNAN IN AM, PABLITO TITUS TATO DRAIN IN AM, WEAN O2 TO ROOM AIR. PT TO BE DISCHARGED HOME TOMORROW AT NOON.
--- NOTE | 2017-06-06 14:51 | NUR ---
BLADDER TRAINING INITIATED AT THIS TIME. PT ABLE TO NOTIFY STAFF WHEN FEELING URGE TO URINATE. NO ACUTE DISTRESS NOTED. WILL CONTINUE PLAN OF CARE.
--- NOTE | 2017-06-06 15:23 | NUR ---
UP IN CHAIR BESIDE BED AT THIS TIME. PT STATES COMFORT. DENIES ANY NEEDS. FAMILY IN ROOM SPEAKING WITH PT. NO ACUTE DISTRESS NOTED. WILL CONTINUE PLAN OF CARE.
--- NOTE | 2017-06-06 17:18 | NUR ---
UP IN ROOM AT THIS TIME WATCHING TV. NO ACUTE DISTRESS NOTED. DENIES ANY NEEDS. WILL CONTINUE PLAN OF CARE.
--- NOTE | 2017-06-06 19:00 | NUR ---
REPORT RECEIVED AND ASSESSMENT COMPLETED. SEE FLOWSHEET FOR FULL DETAILS. PT IS POSTGASTRIC SURGERY BY DR PEREZ. TATO DRAIN REMOVED EARLIER. LEFT SIDE STILL REMAINS. PT IS A X-CHARAN. WILL MONITOR THROUGHOUT SHIFT.
--- NOTE | 2017-06-06 21:00 | NUR ---
2100 MEDS GIVEN. NO CHANGES IN STATUS AT THIS TIME. VSS WILL CONTINUE TO MONITOR.
--- NOTE | 2017-06-06 23:00 | NUR ---
REASSESSMENT COMPLETED. SEE FLOWSHEET FOR FULL DETAILS. NO CHANGES IN STATUS AT THIS TIME.
--- NOTE | 2017-06-06 23:00 | NUR ---
NO CHANGES IN PT STATUS AT THIS TIME. WILL CONTINUE TO MONITOR
[2017-06-07] VITALS (11 sets, daily range): BP systolic 120–149; BP diastolic 63–91
--- NOTE | 2017-06-07 01:07 | NUR ---
PT ASSISTED TO BED TO SLEEP. NO OTHER CHANGES IN STATUS AT THIS TIME. VSS. WILL CONTINUE TO MONITOR
--- NOTE | 2017-06-07 03:00 | NUR ---
NO CHANGES IN PT STATUS AT THIS TIME. PT IS IN BED SLEEPING VSS. BED IN LOW POSITION ALL PERSONAL ITEMS AND CALL LIGHT IN REACH. WILL MONITOR
--- NOTE | 2017-06-07 05:00 | NUR ---
PT LABS IN. H&H DECREASED AGAIN. WILL NOTIFY POTASSIUM 3.1. WILL TREAT PER PROTOCOL.
[2017-06-07 05:18] LABS: BASOPHILS 0 % (0-2); EOSINOPHILS 3.5 % (0-7); HEMATOCRIT 22.8 % (36.0-48.0); IMMATURE GRANULOCYTES 0.7 % (0-5); MCH 24.3 pg (26.0-34.0); MCHC 31.1 g/dL (31.0-37.0); MCV 78.1 fL (80.0-100.0); MEAN PLATELET VOLUME 10.1 fL (7.4-10.4); MONOCYTES 7.4 % (2-11); NEUTROPHILS 73.4 % (40-80); PLATELET COUNT 186 10x3/uL (130-400); RBC 2.92 10x6/uL (4.00-5.40); RDW 17.7 % (11.5-14.5); WBC 4.6 10x3/uL (4.8-10.8)
[2017-06-07 05:20] LABS: HEMOGLOBIN 7.1 g/dL (12-16)
[2017-06-07 05:28] LABS: ANION GAP 13.6 mmol/L (8-16); CALCIUM 7.4 mg/dL (8.5-10.1); CARBON DIOXIDE 21.5 mmol/L (21.0-32.0); CREATININE - SERUM 1.5 mg/dL (0.6-1.3); MAGNESIUM - SERUM 2.2 mg/dL (1.8-2.4); POTASSIUM - SERUM 3.1 mmol/L (3.5-5.1)
--- NOTE | 2017-06-07 07:45 | NUR ---
SPOKE WITH LATASHA REGARDING PTS LOW H&H AND ORDER TO BE DISCHARGED HOME. NOTED ORDER TO ADMIN 2U PRBC WITH 20MG LASIX IN BETWEEN UNITS. AND PT CAN GO HOME AFTER RECIEVES BLOOD. NO ACUTE DISTRESS NOTED. PT SITTING UP IN BED AT THIS TIME. WILL CONTINUE PLAN OF CARE.
--- NOTE | 2017-06-07 08:45 | NUR ---
LEFT TATO DRAIN DC AT THIS TIME PER ORDERS. NOTED 10ML OF CLEAR SEROSANGUNOUS FLUID TO TATO DRAIN BEFORE DC. SITE COVERED WITH 2X2 GAUZE AND TAGEDERM. NO ACUTE DISTRESS NOTED. WILL CONTINUE PLAN OF CARE.
--- NOTE | 2017-06-07 09:35 | NUR ---
FIRST UNIT OF PRBC ADMINISTRATION INITIATED AT THIS TIME. NO ACUTE DISTRESS NOTED. WILL CONTINUE PLAN OF CARE.
--- NOTE | 2017-06-07 11:00 | NUR ---
DR PAGAN IN ROOM SPEAKING WITH PT. NO NEW ORDERS. PT REQUESTS TO SPEAK WITH RAIL DETECTOR CAR OPERATOR FOR FURTHER TEACHINGS ON DISCHARGING DIET PLAN OF BARIATRIC PHASE II LIQUID DIET.
--- NOTE | 2017-06-07 11:21 | NUR ---
FRONT DESK AUXILIARY IN ROOM SPEAKING WITH PT AT THIS TIME ON BARIATRIC PHASE II LIQUID DIET.
--- NOTE | 2017-06-07 11:22 | NUR ---
WILL ADMIN SCHEDULED LASIX IN BETWEEN UNITS OF PRBC, DR PAGAN STATED THAT WOULD BE OKAY.
--- NOTE | 2017-06-07 12:00 | NUR ---
SECOND UNIT OF PRBC ADMINISTRATION INITIATED AT THIS TIME. NO ACUTE DISTRESS NOTED. WILL CONTINUE PLAN OF CARE.
--- NOTE | 2017-06-07 12:15 | NUR ---
BRENNAN DC AT THIS TIME, CATHETER TIP INTACT. 400ML YELLOW URINE IN BRENNAN UPON REMOVAL. NO ACUTE DISTRESS NOTED. WILL CONTINUE PLAN OF CARE.
--- NOTE | 2017-06-07 13:20 | NUR ---
PT ON BEDSIDE TOILET, VOID NOTED. NO ACUTE DISTRESS NOTED. WILL CONTINUE PLAN OF CARE.
--- NOTE | 2017-06-07 14:47 | NUR ---
NO ACUTE DISTRESS NOTED. PT NOTED HAVING POTASSIUM LEVEL OF 3.1 WITH THIS AM LABS, ELECTROLYTE PROTOCOL INITIATED AND REPLACEMENT PROVIDED, REDRAW WAS NOTED AT 3.4 ELECTROLYTE PROTOCOL INITIATED AGAIN AT THIS TIME AND IS CURRENTLY INFUSING VIA LEFT SUBCLAVIAN CVL. MEDUIM BOWEL MOVEMENT NOTED AT THIS TIME, BROWN AND LOOSE. PT ABLE TO URINATE. PT DENIES ANY NEEDS. WILL CONTINUE PLAN OF CARE.
--- NOTE | 2017-06-07 15:45 | NUR ---
2U PRBC ADMIN. NO ADVERSE REACTIONS NOTED. ALSO POTASSIUM REPLACEMENT ADMIN PER ELECTROLTE PROTOCOL. PT TO BE DC HOME PER ORDER OF DR PEREZ AND CONFIRMED BY DR PAGAN TODAY. PT HAS SPOKEN WITH SENIOR LANDSCAPE ARCHITECT AND IS AWARE OF HER DISCHARGING DIET OF BARIATRIC PHASE II LIQUID DIET, AND DENIES ANY QUESTIONS OR CONCERNS REGARDING DIET. PT IS ON ROOM AIR. ALL INCISIONAL SITES INCLUDING DCD TATO DRAIN SITES ARE CDI. PT DOES HAVE SOME VAGINAL BLEEDING, MINIMAL, NOTED; PT STATED IT IS FROM HER PERIOD. PT DENIES ANY QUESTIONS, NEEDS, OR CONCERNS AT THIS TIME. WILL CONTINUE PLAN OF CARE.
--- NOTE | 2017-06-07 15:58 | NUR ---
DISCHARGE PAPERWORK GIVEN TO PT AND SIGNED BY PT. PT IS AWARE OF UPCOMING APPT WITH DR PEREZ ON 06/17/17 AT 1530, PT IS ALSO AWARE OF ACTIVITY ALLOWED SUCH NO STRENOUS ACTIVITY FOR 2 WEEKS, AND NO BATH FOR 2 WEEKS BUT CAN SHOWER. PT ALSO AWARE OF DIET AND HAS TEACHING PAPERWORK REGARDING DISCHARGE DIET OF BARIATRIC PHASE II LIQUID DIET FOR 2 WEEKS. PT HAS RECIEVED HARD SCRIPT AND STATES ALL HER OTHER MEDS HAVE BEEN BASEBALL GLOVE SHAPER BY ALREADY, PT DENIES ANY QUESTIONS OR CONCERNS AND STATES SHE IS READY TO GO HOME. WILL DC CVL WHEN PTS ARRIVES THEN DISCHARGE PT. NO ACUTE DISTRESS NOTED. WILL CONTINUE PLAN OF CARE.
--- NOTE | 2017-06-07 17:00 | NUR ---
LT SUBCLAVIAN CVL DC AT THIS TIME PER ORDERS. PRESSURE APPLIED FOR 10 MIN SITE COVERED WITH 4X4 GAUZE TAGEDERM AND TAPE. CATHETER TIP INTACT. 2 SUITURES DC BEFORE DC OF CVL. NO ACUTE DISTRESS NOTED. WILL DC PT SHORTLY.
--- NOTE | 2017-06-07 17:17 | NUR ---
PT DC HOME AT THIS TIME. LEFT VIA PERSONAL VEHICLE WITH . DENIES ANY QUESTIONS OR CONCERNS REGARDING DISCHARGE CARE. LEFT WITH ALL PERSONAL ITEMS, DISCHARGE PAPERWORK, HARD SCRIPT, TEACHING PAPERWORK, UPCOMING APPOINTMENT INFORMATION, LEVEL OF ACTIVITY ALLOWED PER PHYSICIAN. PT DENIES ANY FURTHER NEEDS OR REQUESTS. NO FURTHER ACTIONS.
== END 2017-06-07 17:19 | disposition home or self-care (01) | DRG 619 ==
LOC: D.SDCHOLD 05:07 → D.ICU 05:07 → D.MS 05:07 → D.PAN 07:30 → D.SDCHOLD 07:30 → EDSTATUS 07:30 → D.OPS 07:30 → D.MS 10:52 → D.ICU 06-04 13:09
PROVIDERS: Anesthesiology; ADMIT Surgery
DX: E66.01 Morbid (severe) obesity due to excess calories (principal); K65.8 Other peritonitis; K91.89 Other postprocedural complications and disorders of digestive system; Z68.41 Body mass index [BMI] 40.0-44.9, adult; Z53.31 Laparoscopic surgical procedure converted to open procedure

== ENCOUNTER 2017-06-09 23:01 | Observation (INO) | payer BC ==
[~2017-06-09] VITALS: Ht 162.6 cm; Wt 104.3 kg
[~2017-06-09 23:01] MED LIST changes: +LEVAQUIN500 MG PO; +MEPERIDINE HCL50 MG PO; +ZOFRAN ODT4 MG/UDTAB PO
[2017-06-10 01:06] LABS: BASOPHILS 0.1 % (0-2); EOSINOPHILS 0.5 % (0-7); HEMATOCRIT 29.8 % (36.0-48.0); HEMOGLOBIN 9.5 g/dL (12-16); IMMATURE GRANULOCYTES 9.9 % (0-5); LYMPHOCYTES 9.3 % (15-50); MCH 25.3 pg (26.0-34.0); MCHC 31.9 g/dL (31.0-37.0); MCV 79.5 fL (80.0-100.0); MEAN PLATELET VOLUME 9.6 fL (7.4-10.4); MONOCYTES 12.9 % (2-11); NEUTROPHILS 67.3 % (40-80); RBC 3.75 10x6/uL (4.00-5.40); RDW 17.9 % (11.5-14.5); WBC 8.3 10x3/uL (4.8-10.8)
[2017-06-10 01:11] LABS: PLATELET COUNT 246 10x3/uL (130-400)
[2017-06-10 01:13] LABS: APPEARANCE HAZY (CLEAR); BILIRUBIN NEGATIVE (NEGATIVE); COLOR YELLOW (YELLOW); GLUCOSE NEGATIVE (NEGATIVE); KETONE LARGE mg/dL (NEGATIVE); LEUKOCYTE ESTERASE TRACE (NEGATIVE); NITRITE NEGATIVE (NEGATIVE); PROTEIN 1+ mg/dL (NEGATIVE); SPECIFIC GRAVITY 1.015 (1.005-1.020); UROBILINOGEN NORMAL (NORMAL)
[2017-06-10 01:14] LABS: BACTERIA FEW /hpf (NONE SEEN); EPITHELIAL CELLS 0-5 /hpf (0-5); HYALINE CAST OCC /lpf (NONE SEEN); MUCUS <1+ /lpf (NONE SEEN); WHITE CELLS - URINE 0-5 /hpf (0-5)
[2017-06-10 01:21] LABS: ALBUMIN 2.3 g/dL (3.4-5.0); BILIRUBIN - TOTAL 0.5 mg/dL (0.2-1.3); CALCIUM 8.3 mg/dL (8.5-10.1); PROTEIN - SERUM 5.8 g/dL (6.4-8.2)
--- NOTE | 2017-06-10 03:40 | NUR ---
RECEIVED FROM ER, PT IS ALERT AND ORINTATED, BED IS LOW, SRX2. CALL LIGHT IN REACH, WILL CONTINUE TO MONITOR
[2017-06-10 03:41] VITALS: BMI 39.5
[2017-06-10 04:00] VITALS: BP 171/90
--- NOTE | 2017-06-10 07:05 | NUR ---
RECEIVED REPORT. ASSUMED CARE OF PATIENT. CALL LIGHT WITHINR REACH. DENIES NEEDS AT THIS TIME. SPOUSE AT BEDSIDE. IV FLUIDS INFUSING ORDERED. NO DISTRESS.
--- NOTE | 2017-06-10 07:25 | NUR ---
MEDICATED FOR NAUSEA AT THIS TIME. NO DISTRESS.
--- NOTE | 2017-06-10 11:05 | NUR ---
SCD'S APPLIED TO BILATERAL LOWER EXTREMITIES AT THIS TIME. NO DISTRESS.
--- NOTE | 2017-06-10 11:07 | NUR ---
PHENERGAN PULLED AND SCANNED FOR PATIENTS NAUSEA/DRY HEAVING BUT PATIENT REFUSED MEDICATION AFTER IT WAS SCANNED AND REQUESTING IV MEDICATION. IV MEDICATION NOT AVAILABLE UNTIL 1145. PHENERGAN RETURNED. NO DISTRESS.
[2017-06-10 12:39] VITALS: BP 169/82
[2017-06-10 13:20] LABS: BASOPHILS 0.5 % (0-2); EOSINOPHILS 0.4 % (0-7); HEMATOCRIT 27.4 % (36.0-48.0); HEMOGLOBIN 8.4 g/dL (12-16); IMMATURE GRANULOCYTES 7.9 % (0-5); LYMPHOCYTES 8.5 % (15-50); MCH 25.1 pg (26.0-34.0); MCHC 30.7 g/dL (31.0-37.0); MONOCYTES 11.7 % (2-11); RBC 3.35 10x6/uL (4.00-5.40); RDW 18.2 % (11.5-14.5); WBC 9.7 10x3/uL (4.8-10.8)
[2017-06-10 13:25] LABS: MCV 81.8 fL (80.0-100.0); PLATELET COUNT 189 10x3/uL (130-400)
[2017-06-10 13:45] LABS: ANION GAP 18.7 mmol/L (8-16); CALCIUM 7.6 mg/dL (8.5-10.1); CARBON DIOXIDE 20.1 mmol/L (21.0-32.0); CREATININE - SERUM 0.9 mg/dL (0.6-1.3)
[2017-06-10 13:48] LABS: POTASSIUM - SERUM 3.8 mmol/L (3.5-5.1)
[2017-06-10 14:06] VITALS: Ht 162.6 cm; Wt 104.3 kg
[2017-06-10] MEDS ORDERED: PHENERGAN25 M1 PO (14:38)
--- NOTE | 2017-06-10 15:26 | NUR ---
Patient Name: CHERELLE STERLING Admission Status: ER Accout number: [id number] Admission Date: 06-10-2017 : 1975 Admission Diagnosis: Attending: DANILO PEREZ Current LOS: 1 Anticipated DC Date: 06-10-2017 Planned Disposition: Home Primary Insurance: [employer] [place] PPO Discharge Planning Comments: * Is the patient Alert and Oriented? Yes 0 * How many steps to enter\exit or inside your home? 2 0 * PCP DR[facility] AGUILAR AT [facility] 0 * Pharmacy [facility] 0 * Preadmission Environment Home with Family 0 * ADLs Independent 0 * Equipment Walker 0 * Other Equipment [employer] - MEDICAL EQUIPMENT PROVIDER PREFERENCE 0 * List name and contact numbers for known caregivers / representatives who currently or will assist patient after discharge: VANESSA STERLING, SPOUSE, 0 * Community resources currently utilized None 0 * Please name any agencies selected above. NONE 0 * Additional services required to return to the preadmission environment? No 0 * Can the patient safely return to the preadmission environment? Yes 0 * Has this patient been hospitalized within the prior 30 days at any hospital? No 0 CM RECEIVED VERBAL ORDER FROM DR. PEREZ TO ARRANGE SCD'S FOR HOME USE AT PT'S REQUEST. CM CALLED ALL AVAILABLE LOCAL MEDICAL SUPPLY COMPANIES, [employer] WAS THE ONLY COMPANY THAT CAN ORDER THEM. CM MET WITH PT AND SPOUSE IN ROOM TO DISCUSS DISCHARGE PLANNING AND NEEDS. PT REPORTS LIVING AT HOME INDEPENDENTLY WITH HER SPOUSE. PT HAS A WALKER, PT'S SPOUSE WOULD LIKE TO USE [employer] FOR SCD IF POSSIBLE THEY KNOW THE CONSULTATIVE SALES ASSOCIATE MARIANA. CM DISCUSSED AVAILABILITY OF HOME HEALTH, REHAB SERVICES AND MEDICAL EQUIPMENT. PT DENIES DISCHARGE NEEDS EXCEPT FOR SCD'S, WILL CONSIDER PAYING FOR THEM IF NOT COVERED BY INSURANCE. PT'S SPOUSE HERE TO PICK HER UP FOR DISCHARGE HOME TODAY. CM CALLED [employer], , SPOKE TO MARIANA AND DISCUSSED REFERRAL, NO QUALIFICATION CRITERIA NOTED. MARIANA INFORMED CM THAT PT'S SPOUSE CAN PICK THE SCD UP AT THE [employer] OFFICE FOR HOME USE AT NOT COSTS. CM NOTIFIED PT AND SPOUSE, BOTH THANKFUL FOR THE EQUIPMENT AND DENIED FURTHER DISCHARGE NEEDS. PT'S SPOUSE TO PICK THE SCD'S UP TODAY AT [employer]. COLD TYPE COMPOSING MACHINE OPERATOR NOTIFIED. Aerial Survey Technician: Paramjit Jenkins
--- NOTE | 2017-06-10 16:49 | NUR ---
1620 22 GAUGE IV REMOVED FROM LEFT FOREARM. CATHETER TIP INTACT. NO BLEEDING FROM SITE. 2X2 GAUZE APPLIED AND SECURED WITH TAPE. 1625 DISCHARGE INSTRUCTIONS PROVIDED TO PATIENT AND HER SPOUSE SHE IS BEING DISCHARGED TO HOME. 1640 PATIENT LEFT UNIT VIA WHEELCHAIR WITH ALL PERSONAL BELONGINGS. PATIENT DISHCARGED TO HOME VIA PRIVATE CAR. PATIENT LEFT UNIT IN NO DISTRESS. PATIENT HAS NO QUESTIONS FOR THIS DIRECTOR INDUSTRIAL MUSEUM UPON DISCHARGE.
== END 2017-06-10 16:45 | disposition home or self-care (01) ==
LOC: D.ER 23:01 → D.M2 06-10 02:53 → OBSVTIME 06-10 02:54 → D.M2 06-10 16:45
PROVIDERS: Nurse Practitioner Acute Care; ADMIT Surgery
DX: E86.0 Dehydration (principal); R11.2 Nausea with vomiting, unspecified; E66.01 Morbid (severe) obesity due to excess calories; Z68.39 Body mass index [BMI] 39.0-39.9, adult

== ENCOUNTER 2017-07-04 10:27 | Outpatient (CLI) | payer BC ==
[~2017-07-04] VITALS: Ht 162.6 cm; Wt 93.6 kg
[~2017-07-04 10:27] MED LIST changes: +PHENERGAN25 M1 PO
[2017-07-04] MEDS ORDERED: CYCLOBENZAPRINE10 MG PO (13:28)
[2017-07-04 13:34] VITALS: Ht 162.6 cm; Wt 93.6 kg
--- NOTE | 2017-07-04 16:19 | NUR ---
1500 DR PEREZ CALLED TO CHECK ON PT , PT STATED SHE FEEL MUCH BETTER 1600 IV FLUIDS FINISH , IV DC WITH CATHER TIP INTACT
== END 2017-07-04 16:22 | disposition home or self-care (01) ==
LOC: D.OPS 10:27
DX: E86.0 Dehydration (principal)

== ENCOUNTER 2017-07-08 20:28 | Inpatient (IN) | payer BC ==
[~2017-07-08 20:28] MED LIST changes: +CYCLOBENZAPRINE10 MG PO
[2017-07-08 21:23] LABS: APPEARANCE CLEAR (CLEAR); COLOR DK YELLOW (YELLOW)
[2017-07-08 21:24] LABS: BILIRUBIN NEGATIVE (NEGATIVE); GLUCOSE NEGATIVE (NEGATIVE); KETONE NEGATIVE (NEGATIVE); NITRITE NEGATIVE (NEGATIVE); PROTEIN 1+ mg/dL (NEGATIVE); SPECIFIC GRAVITY 1.015 (1.005-1.020)
[2017-07-08 21:25] LABS: BACTERIA MANY /hpf (NONE SEEN); RED CELLS - URINE 0-5 /hpf (0-5)
[2017-07-08 22:19] LABS: BASOPHILS 0.1 % (0-2); EOSINOPHILS 0.3 % (0-7); HEMATOCRIT 28.4 % (36.0-48.0); HEMOGLOBIN 8.9 g/dL (12-16); LYMPHOCYTES 13.1 % (15-50); MCH 23.7 pg (26.0-34.0); MCHC 31.3 g/dL (31.0-37.0); MCV 75.7 fL (80.0-100.0); MEAN PLATELET VOLUME 9.5 fL (7.4-10.4); MONOCYTES 11.9 % (2-11); NEUTROPHILS 73.6 % (40-80); RBC 3.75 10x6/uL (4.00-5.40); RDW 16.3 % (11.5-14.5); WBC 6.8 10x3/uL (4.8-10.8)
[2017-07-08 22:24] LABS: PLATELET COUNT 334 10x3/uL (130-400)
[2017-07-08 22:33] LABS: ALBUMIN 2.1 g/dL (3.4-5.0); ANION GAP 10.2 mmol/L (8-16); BILIRUBIN - TOTAL 1.5 mg/dL (0.2-1.3); CALCIUM 8.8 mg/dL (8.5-10.1); CARBON DIOXIDE 32.8 mmol/L (21.0-32.0); CREATININE - SERUM 0.9 mg/dL (0.6-1.3); PROTEIN - SERUM 7.6 g/dL (6.4-8.2)
[2017-07-09] VITALS (12 sets, daily range): BP systolic 105–148; BP diastolic 48–88; BMI 33.3; BMI 33.2
--- NOTE | 2017-07-09 02:03 | NUR ---
PT HAS ORDERS FOR TELEMETRY, PER OCT ONLY ONE AVAILABLE AND WENT TO 2215 FOR HYPOKALEMIA, WILL PUT TELEMTRY ON PT SOON ONE AVAIL
[2017-07-09 05:14] LABS: BASOPHILS 0.2 % (0-2); EOSINOPHILS 0.6 % (0-7); HEMATOCRIT 25.5 % (36.0-48.0); HEMOGLOBIN 7.8 g/dL (12-16); LYMPHOCYTES 17.7 % (15-50); MCH 23.4 pg (26.0-34.0); MCHC 30.6 g/dL (31.0-37.0); MCV 76.3 fL (80.0-100.0); MEAN PLATELET VOLUME 9.3 fL (7.4-10.4); MONOCYTES 13.7 % (2-11); NEUTROPHILS 66.8 % (40-80); PLATELET COUNT 292 10x3/uL (130-400); RBC 3.34 10x6/uL (4.00-5.40); RDW 16.6 % (11.5-14.5); WBC 6.2 10x3/uL (4.8-10.8)
[2017-07-09 05:41] LABS: CALC OSMOLALITY 264 mosm/kg (275-300); CALCIUM 8.5 mg/dL (8.5-10.1); CARBON DIOXIDE 27.1 mmol/L (21.0-32.0); CHLORIDE - SERUM 96 mmol/L (98-107); CREATININE - SERUM 0.8 mg/dL (0.6-1.3); GLUCOSE 99 mg/dL (74-106); POTASSIUM - SERUM 3.1 mmol/L (3.5-5.1); SODIUM 132 mmol/L (136-145); UREA NITROGEN 12 mg/dL (7-18); eGFR NON AFRICAN AMERICAN 83 mL/min (90-120)
--- NOTE | 2017-07-09 07:55 | NUR ---
PT AOX4 RESP EVEN AND NONLABORED PT DENIES NEEDS AT THIS TIME IV TO RIGHT IJ PATENT AND INTACT AT THIS TIME SRX2 BED AT LOWEST SETTING CALL LIGHT WITHIN REACH WILL CONTINUE TO MONITOR
--- NOTE | 2017-07-09 15:53 | NUR ---
SPOKE WITH FRANK IN GI LAB AND EXPLAINED THAT PT REFUSED PRE OPERATIVE MEDICATIONS UNTIL SHE COULD SPEAK WITH DR PEREZ. PAGED DR PEREZ REGARDING HYPOTENSION WITH BLOOD TRANSFUSION.
--- NOTE | 2017-07-09 19:45 | NUR ---
PATIENT STATED SHE WANTS TO GET A DOSE OF BENADRY DIRECTLY BEFORE HER SECOND UNIT OF BLOOD. IT IS ORDERED EVERY Q6HP, SHE RECIEVED IT AT 1641. PAGED .
--- NOTE | 2017-07-09 20:30 | NUR ---
INITIATED SECOND UNIT OF PRBC. WILL REMAIN WITH PATIENT FOR THE FIRST 15 MINS OF THE TRANSFUSION.
[2017-07-10 00:15] VITALS: BP 153/51
[2017-07-10 04:00] VITALS: BP 152/62
[2017-07-10 06:31] LABS: BASOPHILS 0.1 % (0-2); EOSINOPHILS 0.6 % (0-7); HEMATOCRIT 29.3 % (36.0-48.0); IMMATURE GRANULOCYTES 1.5 % (0-5); LYMPHOCYTES 12.8 % (15-50); MCH 25.4 pg (26.0-34.0); MCHC 32.8 g/dL (31.0-37.0); MCV 77.5 fL (80.0-100.0); PLATELET COUNT 291 10x3/uL (130-400); RBC 3.78 10x6/uL (4.00-5.40); RDW 16.6 % (11.5-14.5); WBC 7.1 10x3/uL (4.8-10.8)
[2017-07-10 06:36] LABS: HEMOGLOBIN 9.6 g/dL (12-16)
[2017-07-10 06:58] LABS: CALC OSMOLALITY 266 mosm/kg (275-300); CARBON DIOXIDE 28.5 mmol/L (21.0-32.0); CHLORIDE - SERUM 97 mmol/L (98-107); CREATININE - SERUM 0.8 mg/dL (0.6-1.3); GLUCOSE 95 mg/dL (74-106); PRE-ALBUMIN 6.8 mg/dL (18.0-35.7); SODIUM 134 mmol/L (136-145); UREA NITROGEN 9 mg/dL (7-18); eGFR NON AFRICAN AMERICAN 83 mL/min (90-120)
[2017-07-10 07:02] LABS: POTASSIUM - SERUM 3.7 mmol/L (3.5-5.1)
--- NOTE | 2017-07-10 07:30 | NUR ---
RECIEVED PT DURING WALKING ROUNDS, PT IN BED WITH COMPLAINTS OF PAIN OF A 10 ON A SCALE OF 1-10 IN THE STOMACH AND BACK, INFORMED PT THAT PAGE WOULD BE PLACED TO ABOUT PAIN MEDICATION. ASSESSMENT DONE PER FLOWSHEET. BED IN LOW POSITION, WILL CONTINUE TO MONITOR.
--- NOTE | 2017-07-10 08:15 | NUR ---
ON FLOOR AT THIS TIME, RECIEVED ORDERS FOR PAIN MEDICATION, WILL ADMINISTER PER ORDER.
[2017-07-10 09:01] VITALS: BP 151/73
--- NOTE | 2017-07-10 11:33 | NUR ---
Patient Name: CHERELLE STERLING Admission Status: ER Accout number: [id number] Admission Date: 07-08-2017 : 1975 Admission Diagnosis:DEHYDRATION Attending: DANILO PEREZ Current LOS: 2 Anticipated DC Date: 07-14-2017 Planned Disposition: Home Primary Insurance: [employer] [facility] Discharge Planning Comments: CM MET WITH PATIENT REGARDING D/C NEEDS AND PLANS. PATIENT STATED SHE LIVES WITH HER SPOUSE AND CHILDREN AND HER SON (LEANDRA) WILL DRIVE HER HOME AT DISCHARGE. PATIENT STATED THERE ARE 2 STEPS W/O RAILS TO ENTER HOME AND 1 STAIRCASE INSIDE WITH RAILS (DOES NOT HAVE TO USE). PATIENT IS INDEPENDENT WITH HER CARE AND HAS A WALKER, AND BS COMMODE AT HOME. PATIENTS PCP IS IN [place] BUT SHE CANNOT REMEMBER THE NAME. PATIENT SEES DR. PEREZ HERE. PATIENT USES [facility] FOR HER PHARMACY. PATIENT REFUSED HOME HEALTH AT THIS TIME. CM WILL CONTINUE TO FOLLOW PATIENT WITH D/C NEEDS AND PLANS. PCP [place] (NO NAME) DR. PEREZ SURGEON [facility] [phone] LEANDRA (SON) [phone] Carton Machine Operator: Negin Zafar Is the patient Alert and Oriented? Yes 0 * How many steps to enter\exit or inside your home? 2 W/O RAIL 0 * PCP PCP AT [place] DOES NOT KNOW NAME. SEES ANA HERE 0 * Pharmacy [facility] 0 * Preadmission Environment Home with Family 0 * ADLs Independent 0 * Equipment Bedside Commode Walker 0 * List name and contact numbers for known caregivers / representatives who currently or will assist patient after discharge: LEANDRA ([place]) [phone] 0 * Community resources currently utilized None 0 * Additional services required to return to the preadmission environment? Yes 0 * Can the patient safely return to the preadmission environment? Yes 0 * Has this patient been hospitalized within the prior 30 days at any hospital? Yes 0 Grand Total: 0
[2017-07-10 12:22] VITALS: BP 148/88
--- NOTE | 2017-07-10 12:40 | NUR ---
BALOON DILATION 9 AND 10 X 1 MINUTE ON BOTH.
--- NOTE | 2017-07-10 13:15 | NUR ---
PT RETURNED TO FLOOR FROM GI LAB. PT RESTING WELL WITH NO COMPLAINTS OF PAIN OR DISCOMFORT. BED IN LOW POSITION AND CALL LIGHT WITHIN REACH. WILL CONTINUE TO MONITOR.
[2017-07-10 17:13] VITALS: BP 136/69
[2017-07-10 20:00] VITALS: BP 153/82
[2017-07-11] VITALS: BP 149/56
[2017-07-11 04:00] VITALS: BP 131/74
[2017-07-11 06:17] LABS: BASOPHILS 0 % (0-2); EOSINOPHILS 1.2 % (0-7); HEMATOCRIT 29.4 % (36.0-48.0); HEMOGLOBIN 9.3 g/dL (12-16); LYMPHOCYTES 16.4 % (15-50); MCH 24.9 pg (26.0-34.0); MCHC 31.6 g/dL (31.0-37.0); MCV 78.6 fL (80.0-100.0); MEAN PLATELET VOLUME 9.5 fL (7.4-10.4); MONOCYTES 9.1 % (2-11); NEUTROPHILS 72.3 % (40-80); PLATELET COUNT 313 10x3/uL (130-400); RBC 3.74 10x6/uL (4.00-5.40); WBC 6.1 10x3/uL (4.8-10.8)
[2017-07-11 06:59] LABS: CALC OSMOLALITY 268 mosm/kg (275-300); CALCIUM 8.4 mg/dL (8.5-10.1); CARBON DIOXIDE 31.7 mmol/L (21.0-32.0); CHLORIDE - SERUM 98 mmol/L (98-107); CREATININE - SERUM 0.8 mg/dL (0.6-1.3); GLUCOSE 104 mg/dL (74-106); MAGNESIUM - SERUM 1.3 mg/dL (1.8-2.4); SODIUM 135 mmol/L (136-145); UREA NITROGEN 10 mg/dL (7-18); eGFR NON AFRICAN AMERICAN 83 mL/min (90-120)
[2017-07-11 07:00] LABS: POTASSIUM - SERUM 3.1 mmol/L (3.5-5.1)
--- NOTE | 2017-07-11 08:15 | NUR ---
PT AOX4 RESP EVEN AND NONLABORED PT DENIES NEED AT THIS TIME IV TO LEFT UPPER ARM PATENT AND INTACT AT THIS TIME SRX2 BED AT LOWEST SETTING CALL LIGHT WITHIN REACH WILL CONTINUE TO MONITOR
--- NOTE | 2017-07-11 08:21 | OP ---
PATIENT NAME: CHERELLE STERLING MEDICAL RECORD: [id number] :[birth year] LOCATION:[id number] ADMISSION DATE:07/08/17 SURGEON: DANILO PEREZ MD DATE OF OPERATION: 07/10/2017 SURGEON: Danilo Perez MD PREOPERATIVE DIAGNOSES: 1. Intractable nausea and vomiting. 2. Electrode abnormalities. 3. Anemia. 4. Morbid obesity. 5. Status post gastric bypass for obesity. POSTOPERATIVE DIAGNOSES: 1. Intractable nausea and vomiting. 2. Electrode abnormalities. 3. Anemia. 4. Morbid obesity. 5. Status post gastric bypass for obesity. PROCEDURE PERFORMED: Esophagogastroduodenoscopy with balloon dilatation. ANESTHESIA: Total intravenous anesthesia. COMPLICATIONS: None. SPECIMENS: None. Case was contaminated. ESTIMATED BLOOD LOSS: Minimal. OPERATIVE COURSE: After consent was obtained, the patient was taken to the endoscopy suite. A timeout was taken to confirm the correct patient and procedure. Hurricaine [place] was administered. A bite block was placed. The patient was then placed in left lateral decubitus position. Next, total intravenous anesthesia was given. Next, the scope was advanced through the biteblock, it was passed into the posterior oropharynx, posterior to the epiglottis. Under direct endoscopic vision, the scope was advanced through the esophagus and into the prior gastric pouch. The GE junction and gastric pouch appeared within normal limits. The gastrojejunal anastomosis was evaluated and appeared to be patent, mildly strictured. The scope was advanced into both the afferent and efferent limb of the small bowel. The 8-10 mm balloon dilator was passed the working channel. The gastrojejunostomy anastomosis was serially dilated, it was dilated to 8 mm for 1 minute, 9 mm for 1 minute and then 10 mm for 1 minute. At the end of the procedure this balloon was deflated and removed. The scope was again passed through the gastrojejunostomy. There was no mucosal trauma noted. At this time, the small bowel was suctioned to decompress the air. Scope was withdrawn from the stomach. The stomach was decompressed, was suctioned. The scope was withdrawn to the esophagus. There was no esophageal abnormalities noted. At this time, the procedure was terminated. No complications occurred. The patient was transferred to recovery room in satisfactory condition. OPERATIVE REPORT [id number] CHERELLE STERLING TRANSINT:[id number] Voice Confirmation ID: [id number] DOCUMENT ID: [id number] DANILO PEREZ MD at 0821 CC: [id number] DICTATION DATE: 07/10/17 1542 PHOTOGRAPHER APPRENTICE LITHOGRAPHIC: 07/10/17 1705 ADM IN [place] [id number] [place] [id number]
--- NOTE | 2017-07-11 08:25 | NUR ---
PT AOX4 RESP EVEN AND NONLABORED PT DENIES NNEDS AT THIS TIME IV TO LEFT UPPER ARM PATENT AND INTACT AT THIS TIME SRX2 BED AT THIS TIME BED AT LOWEST SETTING CALL LIGHT WITHIN REACH WILL CONTINUE TO MONITOR
[2017-07-11 08:48] VITALS: BP 137/98
--- NOTE | 2017-07-11 09:25 | NUR ---
NG TUBE INSERTED INTO RIGHT NARE X 1 ATTEMPT PT TOLERATED WELL
[2017-07-11 12:26] VITALS: BP 157/94
--- NOTE | 2017-07-11 13:30 | NUR ---
NG TUBE DISCONTINUED WITHOUT DIFFICULTY AT THIS TIME
[2017-07-11 16:27] VITALS: BP 130/68
[2017-07-11 20:00] VITALS: BP 143/83
[2017-07-12] VITALS: BP 130/65
[2017-07-12 04:00] VITALS: BP 119/58
[2017-07-12 05:28] LABS: BASOPHILS 0.1 % (0-2); HEMOGLOBIN 9.4 g/dL (12-16); LYMPHOCYTES 15.6 % (15-50); MCH 24.8 pg (26.0-34.0); MCHC 31.3 g/dL (31.0-37.0); MCV 79.2 fL (80.0-100.0); MEAN PLATELET VOLUME 9.2 fL (7.4-10.4); MONOCYTES 11.6 % (2-11); NEUTROPHILS 70.7 % (40-80); PLATELET COUNT 325 10x3/uL (130-400); RBC 3.79 10x6/uL (4.00-5.40); RDW 17.7 % (11.5-14.5)
[2017-07-12 05:36] LABS: WBC 7.9 10x3/uL (4.8-10.8)
[2017-07-12 05:45] LABS: CALC OSMOLALITY 264 mosm/kg (275-300); CALCIUM 8.3 mg/dL (8.5-10.1); CARBON DIOXIDE 30.1 mmol/L (21.0-32.0); CHLORIDE - SERUM 96 mmol/L (98-107); CREATININE - SERUM 0.8 mg/dL (0.6-1.3); GLUCOSE 105 mg/dL (74-106); MAGNESIUM - SERUM 1.5 mg/dL (1.8-2.4); POTASSIUM - SERUM 4.2 mmol/L (3.5-5.1); SODIUM 133 mmol/L (136-145); UREA NITROGEN 11 mg/dL (7-18); eGFR NON AFRICAN AMERICAN 83 mL/min (90-120)
--- NOTE | 2017-07-12 08:00 | NUR ---
ASSESSMENT PER FLOW SHEET.PT WITHOUT DISTRESS.DENIES NEEDS AT PRESENT.CALL LIGHT IN REACH.
[2017-07-12 12:54] VITALS: BP 136/62
--- NOTE | 2017-07-12 18:39 | NUR ---
HAS REMANED WITHOUT DISTRESS.HAS HAD SOME NAUSEA AND GAGGING WHILE TRYING TO EAT DINNER.PAIN MEDS X2 TODAY PER MAR ORDERED.PT STATES HAVING BACK PAIN. WITHOUT CHANGE FROM INITIAL SHIFT ASSESSMENT.CONT PLAN OF CARE
[2017-07-12 18:56] VITALS: BP 122/77
[2017-07-12 20:00] VITALS: BP 147/61
[2017-07-13 00:04] VITALS: BP 119/64
[2017-07-13 04:00] VITALS: BP 130/72
[2017-07-13 06:12] LABS: BASOPHILS 0.2 % (0-2); EOSINOPHILS 2.4 % (0-7); HEMATOCRIT 30.2 % (36.0-48.0); HEMOGLOBIN 9.4 g/dL (12-16); IMMATURE GRANULOCYTES 1.1 % (0-5); LYMPHOCYTES 12.9 % (15-50); MCH 24.7 pg (26.0-34.0); MCHC 31.1 g/dL (31.0-37.0); MCV 79.3 fL (80.0-100.0); MEAN PLATELET VOLUME 9.3 fL (7.4-10.4); MONOCYTES 9.8 % (2-11); NEUTROPHILS 73.6 % (40-80); PLATELET COUNT 327 10x3/uL (130-400); RBC 3.81 10x6/uL (4.00-5.40); WBC 6.3 10x3/uL (4.8-10.8)
[2017-07-13 06:15] LABS: CALC OSMOLALITY 264 mosm/kg (275-300); CALCIUM 8.9 mg/dL (8.5-10.1); CARBON DIOXIDE 29.8 mmol/L (21.0-32.0); CHLORIDE - SERUM 96 mmol/L (98-107); CREATININE - SERUM 0.8 mg/dL (0.6-1.3); GLUCOSE 92 mg/dL (74-106); MAGNESIUM - SERUM 1.6 mg/dL (1.8-2.4); POTASSIUM - SERUM 4.3 mmol/L (3.5-5.1); SODIUM 132 mmol/L (136-145); UREA NITROGEN 13 mg/dL (7-18); eGFR NON AFRICAN AMERICAN 83 mL/min (90-120)
--- NOTE | 2017-07-13 08:00 | NUR ---
ASSESSMENT PER FLOW SHEET.PT WITHOUT DISTRESS.DENIES NEDS.CALL LIGHT IN REACH.
[2017-07-13 09:20] VITALS: BP 141/63
[2017-07-13 12:31] VITALS: BP 149/81
[2017-07-13 16:05] VITALS: BP 133/74
--- NOTE | 2017-07-13 16:52 | NUR ---
AMBULATING IN [place] WITH FAMILY.PT WITHOUT DISTRESS.URINE TO LAB ORDERED
--- NOTE | 2017-07-13 18:57 | NUR ---
REMAINS WITHOUT CHANGE FORM INITIAL SHIFT ASSESSMENT.CONT PLAN OF CARE
[2017-07-13 21:27] VITALS: BP 150/82
[2017-07-14 04:00] VITALS: BP 129/71
[2017-07-14 05:46] LABS: BASOPHILS 0 % (0-2); EOSINOPHILS 1.9 % (0-7); HEMATOCRIT 27.8 % (36.0-48.0); HEMOGLOBIN 8.7 g/dL (12-16); IMMATURE GRANULOCYTES 1.2 % (0-5); LYMPHOCYTES 16.6 % (15-50); MCH 24.4 pg (26.0-34.0); MCHC 31.3 g/dL (31.0-37.0); MCV 77.9 fL (80.0-100.0); MEAN PLATELET VOLUME 9.1 fL (7.4-10.4); MONOCYTES 9.5 % (2-11); NEUTROPHILS 70.8 % (40-80); PLATELET COUNT 344 10x3/uL (130-400); RBC 3.57 10x6/uL (4.00-5.40); RDW 18.1 % (11.5-14.5); WBC 5.9 10x3/uL (4.8-10.8)
[2017-07-14 05:51] LABS: CALC OSMOLALITY 260 mosm/kg (275-300); CALCIUM 8.7 mg/dL (8.5-10.1); CARBON DIOXIDE 27.2 mmol/L (21.0-32.0); CHLORIDE - SERUM 96 mmol/L (98-107); CREATININE - SERUM 0.7 mg/dL (0.6-1.3); GLUCOSE 103 mg/dL (74-106); MAGNESIUM - SERUM 1.9 mg/dL (1.8-2.4); POTASSIUM - SERUM 4.2 mmol/L (3.5-5.1); SODIUM 130 mmol/L (136-145); UREA NITROGEN 13 mg/dL (7-18); eGFR NON AFRICAN AMERICAN > 90 mL/min (90-120)
--- NOTE | 2017-07-14 07:45 | NUR ---
PT AOX4 RESP EVEN AND NONLABORED PT DENIES NEEDS AT THIS TIME IV TO LEFT SUBCLAVIAN PATENT AND INTACT AT THIS TIME SRX2 BED AT LOWEST SETTING CALL LIGHT WITHIN REACH WILL CONTINUE TO MONITOR
[2017-07-14 08:48] VITALS: BP 126/57
[2017-07-14 12:36] VITALS: BP 109/43
--- NOTE | 2017-07-14 15:04 | NUR ---
NUTRITION F/U PT VISIT. PT REPORTS SHE IS TOLERATING POST GASTRECTOMY DIET. CONTINUES TO RECEIVE PROCALAMINE AT 100 CC/HR. WILL PROVIDE DIET, MONITOR PT PROGRESS. RD FOLLOWING
[2017-07-14 15:56] VITALS: BP 142/65
[2017-07-14 20:00] VITALS: BP 130/86
--- NOTE | 2017-07-14 20:43 | NUR ---
PUT 2 [place] HATS ON EACH SIDE OF THE TOILET TO CATCH URINE, BROUGHT IN THE JUG FOR THE 24 HOUR URINE. EDUCATED PATIENT ON THE 24 HOUR URINE.
[2017-07-15] VITALS: BP 139/64
[2017-07-15 04:52] LABS: BASOPHILS 0 % (0-2); EOSINOPHILS 2.6 % (0-7); LYMPHOCYTES 14.8 % (15-50); MCH 24.3 pg (26.0-34.0); MCV 78.2 fL (80.0-100.0); MEAN PLATELET VOLUME 9.1 fL (7.4-10.4); MONOCYTES 13.2 % (2-11); NEUTROPHILS 68.4 % (40-80); PLATELET COUNT 344 10x3/uL (130-400); RBC 3.71 10x6/uL (4.00-5.40); RDW 18.2 % (11.5-14.5); WBC 4.9 10x3/uL (4.8-10.8)
[2017-07-15 05:14] LABS: ANION GAP 12.1 mmol/L (8-16); CALCIUM 8.7 mg/dL (8.5-10.1); CREATININE - SERUM 0.9 mg/dL (0.6-1.3); MAGNESIUM - SERUM 2.1 mg/dL (1.8-2.4); POTASSIUM - SERUM 4.1 mmol/L (3.5-5.1); T4 THYROXINE 9.2 ug/dL (4.7-13.3); THYROID STIMULATING HORMONE 5.08 uIU/mL (0.36-3.74)
[2017-07-15 05:39] VITALS: BP 137/49
--- NOTE | 2017-07-15 08:10 | NUR ---
PT AOX4 RESP EVEN AND NONLABORED PT DENIES NEEDS AT THIS TIME IV TO LEFT UPPER ARM PATENT AND INTACT AT THIS TIME SRX2 BED AT LOWEST SETTING CALL LIGHT WITHIN REACH WILL CONTINUE TO MONITOR
[2017-07-15 08:52] VITALS: BP 129/68
[2017-07-15 12:52] VITALS: BP 138/62
[2017-07-15 20:00] VITALS: BP 162/93
--- NOTE | 2017-07-16 01:46 | NUR ---
PATIENT RESTING WITH EYES CLOSED AND NO VISIBLE SIGNS OF DISTRESS. BED IN LOWEST POSITION AND CALL LIGHT WITHIN REACH.
[2017-07-16 04:00] VITALS: BP 143/81
--- NOTE | 2017-07-16 06:44 | NUR ---
0500)NAUSEATED DRY HEAVES.DR. PEREZ CALLED NEW ORDERS REC'D.0630) PHENERGAN 25MG GIVEN IM RIGHT UPPER OUTER HIP FOR RELIEF.WILL CONTINUE TO MONITOR FOR ANY CHGES. AND FOLLOW CURRENT PLAN OF CARE.
[2017-07-16] MEDS ORDERED: BACLOFEN10 MG PO (07:48)
[2017-07-16] MEDS ORDERED: SYNTHROID50 MCG PO (07:49)
[2017-07-16 08:54] VITALS: BP 152/64
--- NOTE | 2017-07-16 11:30 | NUR ---
PT AOX4 RESP EVEN AND NONLABORED PT C/O NAUSEA AT THIS TIME IV NAUSEA MED GIVEN AT THIS TIME IV TO LEFT UPPER ARM PATENT AND INTACT AT THIS TIME SRX2 BED AT LOWEST SETTING CALL LIGHT WITHIN REACH WILL CONTINUE TO MONITOR
[2017-07-16 12:20] LABS: ALKALINE PHOSPHATASE 351 U/L (46-116); ALT (SGPT) 114 U/L (10-68); AMYLASE - SERUM 47 U/L (25-115); BILIRUBIN - TOTAL 0.56 mg/dL (0.2-1.3); CALC OSMOLALITY 267 mosm/kg (275-300); CALCIUM 8.7 mg/dL (8.5-10.1); CARBON DIOXIDE 28.1 mmol/L (21.0-32.0); CHLORIDE - SERUM 96 mmol/L (98-107); CREATININE - SERUM 0.7 mg/dL (0.6-1.3); GLUCOSE 123 mg/dL (74-106); LIPASE 146 U/L (73-393); POTASSIUM - SERUM 4.3 mmol/L (3.5-5.1); PROTEIN - SERUM 7.1 g/dL (6.4-8.2); SODIUM 133 mmol/L (136-145); UREA NITROGEN 14 mg/dL (7-18); eGFR NON AFRICAN AMERICAN > 90 mL/min (90-120)
[2017-07-16 13:04] VITALS: BP 130/82
[2017-07-16 17:34] VITALS: BP 134/82
[2017-07-16 20:00] VITALS: BP 153/79
--- NOTE | 2017-07-17 00:30 | NUR ---
PT HAD SHOWER WITH ASSISTANCE FROM HER DAUGHTER.
--- NOTE | 2017-07-17 01:45 | NUR ---
PATIENT AMBULATING IN THE [place]A. GAIT STEADY. NO SIGNS OF DISTRESS NOTED.
[2017-07-17 04:00] VITALS: BP 101/53
[2017-07-17 07:53] VITALS: BP 127/68
--- NOTE | 2017-07-17 07:55 | NUR ---
REPORT RECEIVED FROM FIBERGLASS BOAT BUILDER NURSE. CALL LIGHT IN REACH.
--- NOTE | 2017-07-17 09:03 | NUR ---
ASSESSMENT COMPLETED. AM MEDS ADMINISTERED WITH NORCO FOR PAIN OF 7. SCDs PLACED TO BLE. CALL LIGHT IN REACH. WILL CONTINUE WITH PLAN OF CARE.
--- NOTE | 2017-07-17 11:31 | NUR ---
AWAKE AND ALERT WITH RESPIRATIONS EVEN AND NON LABORED. SCD'S TO BLE. PT DENIES NEEDS AT THIS TIME. CALL LIGHT IN REACH, WILL CONTINUE WITH PLAN OF CARE.
[2017-07-17 12:35] VITALS: BP 140/69
--- NOTE | 2017-07-17 13:05 | NUR ---
Patient Name: CHERELLE STERLING Encounter No: [id number] : 1975 Primary Insurance: [employer] [place] PPO Anticipated DC Date: 07-14-2017 Planned Disposition: Home External Planned Provider: : DCP follow-up note: Patient and family in agreement with discharge plan. No changes to plan. Case management will follow and assist as needed. Negin Zafar
--- NOTE | 2017-07-17 13:10 | NUR ---
STATES PAIN HAS DECREASED TO A 3. FAMILY AT BEDSIDE. CALL LIGHT IN REACH.
--- NOTE | 2017-07-17 14:22 | NUR ---
BACLOFEN AND FLORAJEN PO. CALL LIGHT IN REACH. ORAL ABX CHANGED TO PILL FORM BECAUSE OF REFUSAL TO SUSPENSION. CALL LIGHT IN REACH.
[2017-07-17 15:32] VITALS: BP 135/86
--- NOTE | 2017-07-17 15:33 | NUR ---
ERYTHROMYCIN PILL HAS NOT BEEN BROUGHT UP FROM PHARMACY.
--- NOTE | 2017-07-17 15:46 | NUR ---
IV SL'D PER ORDER.
--- NOTE | 2017-07-17 19:00 | NUR ---
REPORT RECEIVED AND CARE OF PT ASSUMED. PT SITTING UP IN BED WATCHING TV. LEFT MIDLINE IV SALINE LOCKED. WILL MONITOR FOR NEEDS.
[2017-07-17 20:00] VITALS: BP 151/76
--- NOTE | 2017-07-17 20:55 | NUR ---
HS MEDICATIONS GIVEN TO INCLUDE NORCO PER REQUEST FOR PAIN. WILL CONTINUE TO MONITOR FOR NEEDS. CALL LIGHT WITHIN REACH.
[2017-07-18 01:23] VITALS: BP 148/60
[2017-07-18 05:15] LABS: THYROGLOBULIN ANTIBODY 138.2 IU/mL (0.0-0.9)
[2017-07-18 06:42] VITALS: BP 162/62
--- NOTE | 2017-07-18 07:25 | NUR ---
RESTING QUIETLY IN BED. DENIES ANY NEEDS AT THIS TIME.
--- NOTE | 2017-07-18 08:30 | NUR ---
ASSESSMENT COMPLETE. L MIDLINE SL. DENIES ANY NEEDS AT THIS TIME. FAMILY AT BEDSIDE.
[2017-07-18 08:31] VITALS: BP 113/74
[2017-07-18] MEDS ORDERED: CARDIZEM SR60 MG PO (10:16)
[2017-07-18] MEDS ORDERED: HYDROCODONE-APA1 TAB PO (10:16)
[2017-07-18] MEDS ORDERED: ERYTHROCIN STE250 MG PO (10:16)
[2017-07-18] MEDS ORDERED: PROTONIX FOR OR40 MG PO (10:16)
--- NOTE | 2017-07-18 10:56 | NUR ---
CM REASSESSMENT NOTE: PATIENT IS DISCHARGING HOME TODAY/SPOUSE DRIVING HER. PATIENT REFUSED HOME HEALTH AND HAD NO OTHER NEEDS FOR DISCHARGE.
--- NOTE | 2017-07-18 11:45 | NUR ---
MIDLINE REMOVED FROM L AC. CATHETER TIP INTACT. DISCHARGE TEACHING GIVEN TO PATIENT. VOICED UNDERSTANDING. WILL DC HOME WHEN RIDE AVAILABLE FROM FAMILY.
--- NOTE | 2017-07-18 13:38 | NUR ---
DC'D HOME WITH FAMILY. ESCORTED TO VEHICLE BY VOLUNTEER VIA WC WITH BELONGINGS.
[2017-07-21 12:12] LABS: CORTISOL FREE - 24HR 149 ug/24 hr (0-50); CORTISOL FREE - UR 48 ug/L (Undefined)
--- NOTE | 2017-08-07 10:27 | DS ---
PATIENT:CHERELLE STERLING :73 MEDICAL RECORD: [id number] DISCHARGE SUMMARY ADMISSION DATE: 07/08/17 DISCHARGE DATE: 07/18/17 DATE OF ADMISSION: 07/08/2017 DATE OF DISCHARGE: 07/18/2017 ADMITTING PHYSICIAN: Danilo Perez MD. ADMISSION DIAGNOSES: Dehydration, hyponatremia, morbid obesity, tachycardia and thyrotoxicosis. HOSPITAL COURSE: The patient presented to the Emergency Room with vomiting, dehydration and tachycardia. The patient was admitted to the hospital where she had IV fluid resuscitation. Cardiology was consulted for persistent tachycardia. An echocardiogram was performed which showed normal function, hyponatremia and tachycardia. Workup continued. 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 At that time, she was started on beta-blockers, Synthroid and steroids. An EGD was performed to evaluate the gastrojejunostomy, the previous gastric bypass secondary to patient's complaints of chronic nausea. Please see EGD report for full results of procedure. The patient also had an upper GI and small bowel follow-through, which showed passage of contrast into the cecum within 1 hour. For admission anemia, the patient was treated with 2 units of PRBC. The patient developed fever and cultures revealed Gram-positive bacteremia. The patient was seen and evaluated by the infectious disease doctor, Dr. Ladd, who treated the patient and discontinued the patient's antibiotics secondary to lab contaminate of the blood cultures. At the time of discharge, the patient was tolerating a regular diet. She was ambulating independently. DISCHARGE CONDITION: Stable. DISCHARGE DIET: Bariatric, regular diet as tolerated. WOUND CARE: None required. FOLLOWUP: Follow up with Dr. Perez in 1-2 weeks. Follow up with endocrine as outpatient consultation for Ad disease with thyrotoxicosis. DISCHARGE MEDICATIONS: Please see electronic medical record for full list of patient's discharge medications. TRANSINT:[id number] Voice Confirmation ID: [id number] DOCUMENT ID: [id number] DANILO PEREZ MD at 1027 CC: [id number] DICTATION DATE: 08/06/17 1136 BREAKER UP MACHINE OPERATOR: 08/06/17 2217 DIS IN 07/18/17 [place] [address]
== END 2017-07-18 13:38 | disposition home or self-care (01) | DRG 392 ==
LOC: D.ER 20:28 → D.MS 23:02
PROVIDERS: Family Medicine; Student in an Organized Health Care Education/Training Program; ADMIT Surgery
PROC: 05HC33Z Insertion of Infusion Device into Left Basilic Vein, Percutaneous Approach (ICD-10-PCS; principal; 2017-07-09)
PROC: B54NZZA Ultrasonography of Left Upper Extremity Veins, Guidance (ICD-10-PCS; 2017-07-09)
PROC: 0D768ZZ Dilation of Stomach, Via Natural or Artificial Opening Endoscopic (ICD-10-PCS; 2017-07-10)
PROC: 0D7A8ZZ Dilation of Jejunum, Via Natural or Artificial Opening Endoscopic (ICD-10-PCS; 2017-07-10)
DX: K91.0 Vomiting following gastrointestinal surgery (principal); B37.0 Candidal stomatitis; E87.1 Hypo-osmolality and hyponatremia; E86.0 Dehydration; E66.01 Morbid (severe) obesity due to excess calories; Z68.33 Body mass index [BMI] 33.0-33.9, adult; Z98.84 Bariatric surgery status; E87.6 Hypokalemia; R00.0 Tachycardia, unspecified; I08.1 Rheumatic disorders of both mitral and tricuspid valves; E03.9 Hypothyroidism, unspecified; R50.9 Fever, unspecified

== ENCOUNTER 2017-07-20 13:50 | Inpatient (IN) | payer BC ==
[~2017-07-20 13:50] MED LIST changes: +BACLOFEN10 MG PO; +CARDIZEM SR60 MG PO; +ERYTHROCIN STE250 MG PO; +HYDROCODONE-APA1 TAB PO; +PROTONIX FOR OR40 MG PO; +SYNTHROID50 MCG PO
[2017-07-20 16:01] LABS: BASOPHILS 0 % (0-2); EOSINOPHILS 0.3 % (0-7); HEMATOCRIT 30.9 % (36.0-48.0); HEMOGLOBIN 9.6 g/dL (12-16); IMMATURE GRANULOCYTES 1.5 % (0-5); LYMPHOCYTES 15.1 % (15-50); MCH 24.2 pg (26.0-34.0); MCHC 31.1 g/dL (31.0-37.0); MCV 77.8 fL (80.0-100.0); MEAN PLATELET VOLUME 8.9 fL (7.4-10.4); MONOCYTES 8.2 % (2-11); NEUTROPHILS 74.9 % (40-80); PLATELET COUNT 328 10x3/uL (130-400); RBC 3.97 10x6/uL (4.00-5.40); RDW 18.3 % (11.5-14.5); WBC 7.8 10x3/uL (4.8-10.8)
[2017-07-20 16:15] LABS: ALBUMIN 2.1 g/dL (3.4-5.0); ALKALINE PHOSPHATASE 202 U/L (46-116); ALT (SGPT) 42 U/L (10-68); AMYLASE - SERUM 46 U/L (25-115); BILIRUBIN - TOTAL 0.53 mg/dL (0.2-1.3); CALC OSMOLALITY 281 mosm/kg (275-300); CALCIUM 8.5 mg/dL (8.5-10.1); CARBON DIOXIDE 28.1 mmol/L (21.0-32.0); CHLORIDE - SERUM 101 mmol/L (98-107); CREATININE - SERUM 0.8 mg/dL (0.6-1.3); GLUCOSE 89 mg/dL (74-106); LIPASE 93 U/L (73-393); MAGNESIUM - SERUM 1.7 mg/dL (1.8-2.4); POTASSIUM - SERUM 3.2 mmol/L (3.5-5.1); PROTEIN - SERUM 7.1 g/dL (6.4-8.2); SODIUM 141 mmol/L (136-145); UREA NITROGEN 17 mg/dL (7-18); eGFR NON AFRICAN AMERICAN 83 mL/min (90-120)
[2017-07-20 17:44] LABS: APPEARANCE CLOUDY (CLEAR); COLOR YELLOW (YELLOW); GLUCOSE NEGATIVE (NEGATIVE); KETONE MODERATE mg/dL (NEGATIVE); NITRITE NEGATIVE (NEGATIVE); PROTEIN NEGATIVE (NEGATIVE)
[2017-07-20 17:45] LABS: BILIRUBIN NEGATIVE (NEGATIVE)
[2017-07-20 17:46] LABS: BACTERIA FEW /hpf (NONE SEEN); EPITHELIAL CELLS 0-5 /hpf (0-5); MUCUS <1+ /lpf (NONE SEEN)
--- NOTE | 2017-07-20 21:15 | NUR ---
PT ARRIVED TO [facility] 2232 VIA WC ACCOMPAINED BY FAMILY. RESP EVEN AND UNLABORED WITH NO DISTRESS NOTED. CAN EXPRESS NEED AND WANTS. HAS RED RASH NOTED TO CHEST, RIGHT ARM AND FACE ACROSE BRIDGE OF NOSE. NO PAIN OR DISCOMFORT NOTED OR VOICED. ASSESSMENT COMPLETED.. C/L IN REACH AT BEDSIDE.
[2017-07-20 22:54] VITALS: BP 169/107; BMI 33.3
--- NOTE | 2017-07-20 23:14 | NUR ---
PT C/O OF RASH ITCHING TO CHEST AND FACE AND IS SHE COULD HAVE SOMETHING FOR THE ITCHING CALL WAS PLACED TO THE ON -CALL MD. AWAITING RESPONSE.
--- NOTE | 2017-07-20 23:39 | NUR ---
REC'D CALL BACK FROM DR. PAGAN WITH NEW ORDERS FOR BENDRYL 25 MG PO EVRY 4 HRS PRN AND TO START PT ON REGULAR DIET. PT STATED I DON'T THINK THAT AM GOING TO BE ABLE TO TAKE THAT PILL D/T EVERYTIME THAT I MOVE I START THROWING UP AND TO JUST HOLD MEDICATION FOR A FEW MINUTES. PT WAS MEDICATED WITH ZOFRAN 4 MG PER ORDERS VIA IV. FAMILY REMAIN AT BEDSIDE.
[2017-07-21] VITALS: BP 193/88
[2017-07-21 04:00] VITALS: BP 194/78
--- NOTE | 2017-07-21 07:30 | NUR ---
LYING IN BED,WITHOUT DISTRESS.FAMILY AT BEDSIDE.CALL LIGHT IN REACH
--- NOTE | 2017-07-21 07:51 | NUR ---
PRN ZOFRAN IV GIVEN FOR NAUSEA
[2017-07-21 08:30] VITALS: BP 152/73
--- NOTE | 2017-07-21 08:33 | NUR ---
DR TURNER INTO SEE PATIENT. NEW ORDERS RECEIVED.
--- NOTE | 2017-07-21 09:00 | NUR ---
PATIENT REFUSED ALL PO MEDICATIONS.
--- NOTE | 2017-07-21 10:04 | NUR ---
FLEETS ENEMA GIVEN PER ORDERS
--- NOTE | 2017-07-21 10:35 | NUR ---
PATIENT IS ON ELECTROLITE PROTOCHOL. K 10MEG IV HUNG
[2017-07-21 13:09] VITALS: BP 152/79
--- NOTE | 2017-07-21 13:40 | NUR ---
PATIENT HAD A LARGE BOWEL MOVEMENT AFTER FLEETS ENEMA GIVEN
[2017-07-21 15:12] VITALS: BMI 33.2
--- NOTE | 2017-07-21 16:00 | NUR ---
PATIENT REFUSED BACLAFEN. STATES SHE DOES NOT WANT TO TAKE ANYTHING PO AT THIS TIME. THIS NURSE OFFERED PRN OSMAR. PATIENT DECLINED
[2017-07-21 16:39] VITALS: BP 154/68
--- NOTE | 2017-07-21 19:00 | NUR ---
REPORT RECEIVED AND CARE OF PT ASSUMED. PT LYING IN SEMI BURCIAGA'S POSITION VISITING WITH FAMILY MEMBER. IV IN LEFT AC PATENT WITH PROCALAMINE INFUSING AT 75 ML / HR. POTASSIUM RIDER JUST FINISHING, AND TURNED OFF. WILL MONITOR CLOSELY FOR NEEDS.
[2017-07-21 20:00] VITALS: BP 155/56
--- NOTE | 2017-07-21 21:40 | NUR ---
DAUGHTER ASSISTED PT UP TO USE RESTROOM...AMBULATING WITH 1 PERSON ASSIST.
--- NOTE | 2017-07-21 21:56 | NUR ---
HS MEDICAITONS GIVEN TO INCLUDE MORPHINE 4 MG PER REQUEST FOR PAIN. PT REFUSED ALL PO MEDICATIONS SHE DOSN'T THINK SHE CAN SWALLOW AND KEEP DOWN AT THIS TIME. WILL CONTINUE TO MONITOR FOR NEEDS.
[2017-07-22] VITALS: BP 146/73; BP 146/732
[2017-07-22 04:00] VITALS: BP 150/83
--- NOTE | 2017-07-22 07:30 | NUR ---
PT IS RECEIVED LYING IN BED. HER DAUGHTER IS AT BEDSIDE. PT HAD A GASTRIC SLEEVE IN THE PAST AND IS HAVING DIFFICULTIES. SHE STATES THAT HER PAIN IS A 5. GEN- AWAKE AND ALERT. LUNGS- CLEAR. HEART- RRR. ABD- OBESE. BS+. EXT- WITH MINIMAL EDEMA. BED IS LOW, SIDE RAILS UP X 2 AND CALL LIGHT IN REACH.
[2017-07-22 08:52] VITALS: BP 155/84
--- NOTE | 2017-07-22 09:54 | NUR ---
GAVE PT HER 0900 MEDS. SHE REQUESTED TO GIVE HERSELF LOVENOX. DHE GAVE IT IN RL ABDOMEN.
--- NOTE | 2017-07-22 11:01 | NUR ---
Patient Name: CHERELLE STERLING Admission Status: ER Accout number: [id number] Admission Date: 07-20-2017 : 1975 Admission Diagnosis:NAUSEA WITH VOMITING, UNSPECIFIED Attending: ESTELLE PAGAN Current LOS: 2 Anticipated DC Date: 07-25-2017 Planned Disposition: Home Primary Insurance: [employer] [facility] Discharge Planning Comments: CM MET WITH PATIENT REGARDING D/C NEEDS AND PLANS. PATIENT STATED SHE LIVES WITH HER CHILDREN ([place]OU[place]) IS OUT OF TOWN. PATIENTS SON (LUIS FERNANDO) WILL DRIVE HER HOME AT DISCHARGE. PATIENT IS INDEPENDENT WITH HER CARE AND HAS A WALKER AT HOME. PATIENTS PCP IS DR. REESE IN [place] AND SHE USES [facility]. PATIENT IS REFUSING HOME HEALTH AT THIS TIME. CM WILL CONTINUE TO FOLLOW PATIENT WITH D/C NEEDS AND PLANS. PCP DR. REESE ([place]) [facility]- [phone] LUIS FERNANDO ([place]) [phone] Patient Case Coordinator: Negin Zafar Is the patient Alert and Oriented? Yes 0 * How many steps to enter\exit or inside your home? 2 0 * PCP DR. REESE ([place]) 0 * Pharmacy [facility] 0 * Preadmission Environment Home with Family 0 * ADLs Independent 0 * Equipment Walker 0 * List name and contact numbers for known caregivers / representatives who currently or will assist patient after discharge: LUIS FERNANDO ([place]) [phone] 0 * Community resources currently utilized None 0 * Additional services required to return to the preadmission environment? Yes 0 * Can the patient safely return to the preadmission environment? Yes 0 * Has this patient been hospitalized within the prior 30 days at any hospital? Yes 0 Grand Total: 0
[2017-07-22 12:06] VITALS: BP 148/79
--- NOTE | 2017-07-22 12:38 | NUR ---
PT IS UP WALKING IN THE HALLWAY WITH PHYSICAL THERAPY. PT TOLERATED WELL.
[2017-07-22 16:23] VITALS: BP 145/84
--- NOTE | 2017-07-22 18:38 | NUR ---
PT IS SLEEPING IN BED AND HAS MOST OF DAY. BED IS LOW. SIDE RAQILS UP X 2 AND CALL LIGHT IN REACH. IV PATENT LEFT AC
[2017-07-22 20:00] VITALS: BP 153/82
--- NOTE | 2017-07-22 20:20 | NUR ---
TEMP 101.5. DR. PEREZ AT BEDSIDE. ADMINISTERED PRN TYLENOL. WILL CONT TO MONITOR.
--- NOTE | 2017-07-22 23:00 | NUR ---
SHIFT ASSESSMENT COMPLETE. PT IS A&O X4 COMPLAINING OF BACK PAIN AND REQUESTING PRN PAIN MEDICAITONS. ADMINISTERED PRN MORPHINE. DAUGHTER AT BEDSIDE AND HELPED ASSIST HER MOTHER TO THE RESTROOM. GAIT IS STEADY WITH NO SIGNS OF WEAKNESS. S1S2 AUDIBLE, LUNG SOUNDS CLEAR THROUGHOUT ALL LOBES, ROOM AIR. ABD IS FLAT, BS ACTIVE X4. RADIAL AND PEDAL PULSES PALP. WILL CONT TO MONITOR.
--- NOTE | 2017-07-23 00:20 | NUR ---
PT RESTING WITH DAUGHTER AT BEDSIDE. NO NEEDS AT THIS TIME. WILL CONT WITH POC.
[2017-07-23 04:00] VITALS: BP 130/73
[2017-07-23 06:56] LABS: CALCIUM 8.9 mg/dL (8.5-10.1); CARBON DIOXIDE 28.9 mmol/L (21.0-32.0); CHLORIDE - SERUM 98 mmol/L (98-107); CREATININE - SERUM 0.8 mg/dL (0.6-1.3); MAGNESIUM - SERUM 2.1 mg/dL (1.8-2.4); POTASSIUM - SERUM 3.8 mmol/L (3.5-5.1); SODIUM 134 mmol/L (136-145); UREA NITROGEN 13 mg/dL (7-18); eGFR NON AFRICAN AMERICAN 83 mL/min (90-120)
[2017-07-23 06:58] LABS: CALC OSMOLALITY 270 mosm/kg (275-300); GLUCOSE 152 mg/dL (74-106); PRE-ALBUMIN 10.5 mg/dL (18.0-35.7)
--- NOTE | 2017-07-23 07:30 | NUR ---
PT RECEIVED THIS AM LYING IN BED. SHE OFFERS NO COMPLAINTS. IV PATENT L AC. GEN- AWAKE AND ALERT. LUNGS- CLEAR. HEART- RRR. ABD- OBESE, SOFT, TN. EXT- NO EDEMA. PT HAS BEEN GETTING UP TO VOID BUT HAS NOT BEEN WALKING IN HALLWAYS. BED IS LOW, SIDE RAILS UP X 2 AND CALL LIGHT IN REACH.
--- NOTE | 2017-07-23 09:00 | NUR ---
PT IS RESTING IN BED. SHE OFFERS NO COMPLAINTS. BED IS LOW. SIDE RAILS UP X 2 AND CALL LIGHT IN REACH.
[2017-07-23 09:18] VITALS: BP 128/76
--- NOTE | 2017-07-23 10:30 | NUR ---
PT OFFERS NO COMPLAINTS. PT HAS ONLY GOTTEN UP TO BATHROOM AND HAS NOT BEEN AMBULATING IN HALLWAY. DISCUSSED WITH PT. WILL ENCOURAGE HER TO GET UP AND WALK MORE IN HALLWAYS AFTER PT EVALUATES.
[2017-07-23 12:32] VITALS: BP 154/75
--- NOTE | 2017-07-23 12:49 | NUR ---
PT IS SITTING UP IN BED LOOKING AT PHONE. DENIES ANY NEEDS AT THIS TIME.
--- NOTE | 2017-07-23 13:45 | NUR ---
PT IS UP WALKING IN HALLWAY WITH PT. SHE DID VERY WELL. PT NEEDS TO BE ENCOURAGED TO GET UP AND WALK IN THE HALLWAY MORE.
--- NOTE | 2017-07-23 14:49 | NUR ---
NUTRITION F/U PT REPORTS IMPROVED PO INTAKE. NO NAUSEA OR VOMITING AT THIS TIME. PROCALAMINE @ 75 CC/HR. RD FOLLOWING
[2017-07-23 17:28] VITALS: BP 141/69
--- NOTE | 2017-07-23 18:02 | NUR ---
PT GIVEN HER PROTONIX. SHE IS SITTING UP IN BED. BED IS LOW, SIDE RAILS UP X 2 AND CALL LIGHT IN REACH. IV PATENT LEFT AC WITH PROCALAMINE INFUSING AT 75 CC/HR.
[2017-07-23] MEDS ORDERED: PREDNISONE10 MG PO (19:31)
[2017-07-23] MEDS ORDERED: SYNTHROID75 MCG PO (19:32)
[2017-07-23 20:00] VITALS: BP 149/75
[2017-07-24] VITALS: BP 135/77; BP 136/83
[2017-07-24 04:00] VITALS: BP 124/68; BP 135/77
--- NOTE | 2017-07-24 07:00 | NUR ---
RECIEVED REPORT, ASSUMED CARE OF PT. RESTING WITH FAMILY AT BEDSIDE. L AC IV INFUSING ORDERED, DRSG C/D/I. NO NEEDS VOICED AT THIS TIME. BED IN LOWEST POSITION, SIDE RAILS UP X 2, CALL LIGHT WITHIN REACH.
[2017-07-24 08:30] VITALS: BP 106/57
[2017-07-24] MEDS ORDERED: PROTONIX40 MG PO (08:38)
--- NOTE | 2017-07-24 10:14 | NUR ---
DISCHARGE INSTRUCTIONS GIVEN TO PT, VERBALIZED UNDERSTANDING AND SIGNED. L AC IV D/C'D, BANDAGE APPLIED. ALL QUESTIONS ANSWERED.
--- NOTE | 2017-07-24 10:21 | NUR ---
CM REASSESSMENT NOTE; PATIENT IS DISCHARGING HOME TODAY. PATIENTS FAMILY IS DRIVING HER HOME. PATIENT REFUSED HOME HEALTH AND HAD NO OTHER NEEDS FOR DISCHARGE.
--- NOTE | 2017-07-24 11:00 | NUR ---
PT DISCHARGED FROM FLOOR VIA WHEELCHAIR WITH HOSPITAL STAFF. TRANSPORTED TO FAMILY VEHICLE, PERSONAL BELONGINGS WITH PT.
== END 2017-07-24 11:39 | disposition home or self-care (01) | DRG 644 ==
LOC: D.ER 13:50 → D.MS 19:57
PROVIDERS: Physician Assistant Medical; Surgery; ADMIT Surgery
DX: E06.3 Autoimmune thyroiditis (principal); E87.2 Acidosis; E86.0 Dehydration; I10 Essential (primary) hypertension; K21.9 Gastro-esophageal reflux disease without esophagitis; Z98.84 Bariatric surgery status; R00.0 Tachycardia, unspecified

== ENCOUNTER 2017-08-01 05:15 | Inpatient (IN) | payer BC ==
[~2017-08-01 05:15] MED LIST changes: +PREDNISONE10 MG PO; +PROTONIX40 MG PO; +SYNTHROID75 MCG PO
[2017-08-01 06:08] LABS: ALBUMIN 2.5 g/dL (3.4-5.0); ALKALINE PHOSPHATASE 135 U/L (46-116); ALT (SGPT) 16 U/L (10-68); BILIRUBIN - TOTAL 1.02 mg/dL (0.2-1.3); CALC OSMOLALITY 264 mosm/kg (275-300); CALCIUM 9.2 mg/dL (8.5-10.1); CHLORIDE - SERUM 91 mmol/L (98-107); CREATININE - SERUM 0.7 mg/dL (0.6-1.3); GLUCOSE 127 mg/dL (74-106); POTASSIUM - SERUM 3.7 mmol/L (3.5-5.1); PROTEIN - SERUM 7.6 g/dL (6.4-8.2); SODIUM 129 mmol/L (136-145); UREA NITROGEN 23 mg/dL (7-18); eGFR NON AFRICAN AMERICAN > 90 mL/min (90-120)
[2017-08-01 06:18] LABS: CKMB 0.1 U/L (0.0-3.6); CREATINE KINASE 31 UL (21-215); TROPONIN-I 0.021 ng/mL (0.000-0.060)
[2017-08-01 06:19] LABS: BASOPHILS 0 % (0-2); EOSINOPHILS 0 % (0-7); HEMATOCRIT 34.6 % (36.0-48.0); IMMATURE GRANULOCYTES 1.5 % (0-5); LYMPHOCYTES 6.3 % (15-50); MCH 23.8 pg (26.0-34.0); MCHC 31.8 g/dL (31.0-37.0); MCV 74.9 fL (80.0-100.0); MEAN PLATELET VOLUME 9.6 fL (7.4-10.4); MONOCYTES 6.3 % (2-11); NEUTROPHILS 85.9 % (40-80); PLATELET COUNT 301 10x3/uL (130-400); RBC 4.62 10x6/uL (4.00-5.40); RDW 19.9 % (11.5-14.5); WBC 20.3 10x3/uL (4.8-10.8)
[2017-08-01 09:41] LABS: APTT 35.9 SECONDS (22.8-39.4); INR 1.01 (0.85-1.17); PROTIME 13.2 SECONDS (11.6-15.0)
[2017-08-01 13:20] VITALS: BP 197/90; BMI 31.6
--- NOTE | 2017-08-01 13:36 | NUR ---
PT AOX4 RESP EVEN AND NONLABORED PT DENIES NEEDS AT THIS TIME IV TO LEFT HAND PATENT AND INTACT AT THIS TIME SRX2 BED AT LOWEST SETTING CALL LIGHT WITHIN REACH WILL CONTINUE TO MONITOR
[2017-08-01 18:16] VITALS: BP 159/52
[2017-08-01 20:00] VITALS: BP 155/84
--- NOTE | 2017-08-01 21:40 | NUR ---
LYING QUIETLY. NO COMPLAINTS VOICED. IV INFUSING RO LEFT ARM WITHOUT REDNESS OR EDEMA NOTED. DRAIN TO LEFT SIDE THORACIC AREA INTACT AND DRAINING DARK RED DRAINAGE. CL IN REACH. FAMILY AT BEDSIDE.
[2017-08-02] VITALS: BP 105/62
--- NOTE | 2017-08-02 03:14 | NUR ---
PT RESTING QUIETLY, EYES CLOSED. RESP EVEN, UNLABORED. NO DISTRESS NOTED. CONTINUE COKE HANDLING SUPERVISOR'S PLAN OF CARE.
[2017-08-02 04:00] VITALS: BP 109/46
--- NOTE | 2017-08-02 05:12 | NUR ---
AWAKE WITH NO COMPLAINTS. NO CHANGE IN ASSESSMENT. CL IN REACH
[2017-08-02 06:38] LABS: BASOPHILS 0.1 % (0-2); EOSINOPHILS 0.1 % (0-7); HEMATOCRIT 28.4 % (36.0-48.0); HEMOGLOBIN 8.9 g/dL (12-16); IMMATURE GRANULOCYTES 0.5 % (0-5); LYMPHOCYTES 8.3 % (15-50); MCH 23.4 pg (26.0-34.0); MCHC 31.3 g/dL (31.0-37.0); MCV 74.5 fL (80.0-100.0); MEAN PLATELET VOLUME 9.8 fL (7.4-10.4); MONOCYTES 6.3 % (2-11); NEUTROPHILS 84.7 % (40-80); PLATELET COUNT 233 10x3/uL (130-400); RBC 3.81 10x6/uL (4.00-5.40); RDW 20.1 % (11.5-14.5); WBC 15.1 10x3/uL (4.8-10.8)
[2017-08-02 06:50] LABS: CARBON DIOXIDE 23.6 mmol/L (21.0-32.0); CHLORIDE - SERUM 100 mmol/L (98-107); GLUCOSE 87 mg/dL (74-106); MAGNESIUM - SERUM 1.5 mg/dL (1.8-2.4); POTASSIUM - SERUM 3.4 mmol/L (3.5-5.1); SODIUM 135 mmol/L (136-145)
[2017-08-02 06:51] LABS: CALC OSMOLALITY 269 mosm/kg (275-300); CREATININE - SERUM 0.5 mg/dL (0.6-1.3); UREA NITROGEN 14 mg/dL (7-18); eGFR NON AFRICAN AMERICAN > 90 mL/min (90-120)
--- NOTE | 2017-08-02 07:55 | NUR ---
ASSESSMENT COMPLETE. IV TO L WRIST PATENT. NS INFUSING AT 100 CC/HR VIA PUMP. MACHINE HOOP MAKER HELPER MORPHINE 1-10-10 IN USE FOR PAIN CONTROL. DRAIN PATENT TO L FLANK AREA WITH BLOOD TINGED DRAINAGE NOTED IN BAG. INSTRUCTIONAL RESOURCE TEACHER SHOWING ST 108 PER TECH.SCD'S IN USE TO BILAT LEGS.
[2017-08-02 08:11] VITALS: BP 118/50
[2017-08-02 10:22] VITALS: BMI 31.6
--- NOTE | 2017-08-02 12:00 | NUR ---
DENIES ANY NEEDS AT THIS TIME. NO CHANGES NOTED.
[2017-08-02 12:37] VITALS: BP 165/67
[2017-08-02 16:18] VITALS: BP 123/72
--- NOTE | 2017-08-02 19:00 | NUR ---
REPORT RECEIVED AND CARE OF PT ASSUMED. PT LYING IN SEMI BURCIAGA'S POSITION VISITING WITH FAMILY MEMBER. IV IN LEFT WRIST PATENT WITH NS INFUSING AT 30 ML / HR, AND STAMPS OR COINS SALESPERSON / MORPNINE FOR PAIN CONTROL. BILI DRAIN TO LEFT / BACK DRAINING TO GRAVITY WITH GREENISH DRAINAGE IN COLLECTION BAG. TELEMETRY IN USE AND READING 96 SR AT THIS CHECK. WILL MONITOR CLOSELY FOR NEEDS.
[2017-08-02 20:00] VITALS: BP 129/76
--- NOTE | 2017-08-02 20:45 | NUR ---
HS MEDICATIONS GIVEN. FLUSHED BILI DRAIN WITH 10 ML OF SALINE. WILL CONTINUE TO MONITOR FOR NEEDS.
--- NOTE | 2017-08-02 23:24 | NUR ---
GAVE IV PROTONIX. PT RESTING QUIETLY IN SUPINE POSITION WITH UNLABORED BREATHING. FAMILY MEMBER IS AT BEDSIDE.
--- NOTE | 2017-08-02 23:25 | NUR ---
PT RESTING IN LOW BURCIAGA'S POSITION WITH FAMILY MEMBER AT BEDSIDE. WILL CONTINUE TO MONITOR FOR NEEDS.
[2017-08-03] VITALS: BP 126/68
[2017-08-03 06:10] LABS: BASOPHILS 0 % (0-2); EOSINOPHILS 1.4 % (0-7); HEMATOCRIT 27.2 % (36.0-48.0); HEMOGLOBIN 8.4 g/dL (12-16); IMMATURE GRANULOCYTES 0.4 % (0-5); LYMPHOCYTES 12.8 % (15-50); MCH 23.5 pg (26.0-34.0); MCHC 30.9 g/dL (31.0-37.0); MCV 76.2 fL (80.0-100.0); MEAN PLATELET VOLUME 8.5 fL (7.4-10.4); MONOCYTES 6.7 % (2-11); NEUTROPHILS 78.7 % (40-80); PLATELET COUNT 175 10x3/uL (130-400); RBC 3.57 10x6/uL (4.00-5.40); RDW 20.1 % (11.5-14.5)
[2017-08-03 06:18] LABS: CHLORIDE - SERUM 103 mmol/L (98-107); GLUCOSE 94 mg/dL (74-106); POTASSIUM - SERUM 3.2 mmol/L (3.5-5.1); SODIUM 136 mmol/L (136-145)
[2017-08-03 06:22] LABS: CALC OSMOLALITY 269 mosm/kg (275-300); CARBON DIOXIDE 30.6 mmol/L (21.0-32.0); CREATININE - SERUM 0.7 mg/dL (0.6-1.3); MAGNESIUM - SERUM 1.9 mg/dL (1.8-2.4); UREA NITROGEN 8 mg/dL (7-18); eGFR NON AFRICAN AMERICAN > 90 mL/min (90-120)
--- NOTE | 2017-08-03 06:26 | NUR ---
POTASSIUM LEVEL 3.2 THIS AM REQUIRING COVERAGE WITH X4 10 MEQ RIDERS PER ELECTROLYTE PROTOCOL. STARTING FIRST RIDER NOW.
--- NOTE | 2017-08-03 07:50 | NUR ---
ASSESSMENT COMPLETE. IV TO L WRIST PATENT. NS INFUSING AT 50 CC/HR AND KCL RIDER INFUSING AT 50 CC/HR VIA PUMP. METER TESTER POLYPHASE MORPHINE 1-10-10 IN USE FOR PAIN CONTROL. DRAIN TO L FLANK TO BILI BAG WITH BLOOD TINGED DRAINAGE NOTED. SCD'S IN USE TO BILAT LEGS. RETORT FEEDER GROUND BONE SHOWING SR 78 PER TECH.
[2017-08-03 08:43] VITALS: BP 153/72
--- NOTE | 2017-08-03 12:00 | NUR ---
VISITING WITH FAMILY. DENIES ANY NEEDS AT THIS TIME.
[2017-08-03 12:10] VITALS: BP 152/78
[2017-08-03 16:20] VITALS: BP 139/52
--- NOTE | 2017-08-03 17:00 | NUR ---
NO NEEDS VOICED AT THIS TIME. CONCERNED THAT DRAIN WAS OCCLUDED. DRAIN FLUSHED WITH NO DIFFICULTY. DRAINAGE IS PINKISH IN COLOR WITH SEDIMENT. FAMILY AT BEDSIDE.
--- NOTE | 2017-08-03 19:00 | NUR ---
REPORT RECEIVED AND CARE OF PT ASSUMED. PT LYING IN HIGH BURCIAGA'S POSITION VISITING WITH FAMILY MEMBER. IV IN LEFT WRIST PATENT WITH NS INFUSING AT 30 ML / HR. AIRPLANE ELECTRICIAN W/ MORPHINE IN USE FOR PAIN CONTROL. WILL MONITOR CLOSELY FOR NEEDS.
[2017-08-03 19:30] VITALS: BP 145/81
--- NOTE | 2017-08-03 20:36 | NUR ---
HS MEDICATIONS GIVEN. WILL CONTINUE TO MONITOR FOR NEEDS.
--- NOTE | 2017-08-03 21:49 | NUR ---
GAVE X2 DULCOLAX SUPP PER ORDER.
--- NOTE | 2017-08-03 23:00 | NUR ---
PT HAD GOOD RESULTS FROM SUPPOSITORIES, WITH MED / LARGE BM.
[2017-08-03 23:30] VITALS: BP 114/65
[2017-08-04 04:00] VITALS: BP 137/61
[2017-08-04 06:00] LABS: BASOPHILS 0 % (0-2); EOSINOPHILS 2.9 % (0-7); HEMATOCRIT 27.8 % (36.0-48.0); HEMOGLOBIN 8.5 g/dL (12-16); IMMATURE GRANULOCYTES 0.4 % (0-5); LYMPHOCYTES 17.5 % (15-50); MCH 23.5 pg (26.0-34.0); MCHC 30.6 g/dL (31.0-37.0); MCV 76.8 fL (80.0-100.0); MEAN PLATELET VOLUME 9.6 fL (7.4-10.4); MONOCYTES 8.3 % (2-11); NEUTROPHILS 70.9 % (40-80); RBC 3.62 10x6/uL (4.00-5.40)
[2017-08-04 06:02] LABS: PLATELET COUNT 248 10x3/uL (130-400); WBC 5.2 10x3/uL (4.8-10.8)
[2017-08-04 06:12] LABS: CALCIUM 8.4 mg/dL (8.5-10.1); CARBON DIOXIDE 31.7 mmol/L (21.0-32.0); CHLORIDE - SERUM 102 mmol/L (98-107); GLUCOSE 95 mg/dL (74-106); MAGNESIUM - SERUM 1.9 mg/dL (1.8-2.4); POTASSIUM - SERUM 3.1 mmol/L (3.5-5.1); SODIUM 137 mmol/L (136-145)
[2017-08-04 06:16] LABS: CALC OSMOLALITY 270 mosm/kg (275-300); CREATININE - SERUM 0.5 mg/dL (0.6-1.3); UREA NITROGEN 4 mg/dL (7-18); eGFR NON AFRICAN AMERICAN > 90 mL/min (90-120)
--- NOTE | 2017-08-04 07:35 | NUR ---
A&O, DENIES NEEDS, NO DISTRESS NOTED, CALL LIGHT IN REACH, BED LOWEST POSITION, WILL CONTINUE TO MONITOR
[2017-08-04 08:31] VITALS: BP 137/84
--- NOTE | 2017-08-04 11:00 | NUR ---
Patient Name: CHERELLE STERLING Admission Status: ER Accout number: [id number] Admission Date: 08-01-2017 : 1975 Admission Diagnosis: Attending: DANILO PEREZ Current LOS: 3 Anticipated DC Date: 08-07-2017 Planned Disposition: Home Primary Insurance: [employer] [place] [employer] Discharge Planning Comments: CM MET WITH PATIENT AND DAUGHTER (JB) REGARDING D/C NEEDS AND PLANS. PATIENT STATED DAUGHTER WILL DRIVE HER HOME AT DISCHARGE. PATIENT HAS 2 STEPS TO ENTER HOME AND 1 FLIGHT OF STAIRS INSIDE (DOES NOT USE THESE). PATIENT STATED SHE IS INDEPENDENT WITH HER CARE AND HAS A WALKER AT HOME. PATIENT STATED HER PCP IS DR. REESE AND PHARMACY IS [facility]. PATIENT DOES NOT WANT HOME HEALTH AT THIS TIME. CM WILL CONTINUE TO FOLLOW PATIENT WITH D/C NEEDS AND PLANS. PCP DR. HUGH GRECO AT [facility] [id number] JB (DAUGHTER) [phone] Safety Companion: Negin Zafar Is the patient Alert and Oriented? Yes 0 * How many steps to enter\exit or inside your home? 1 FLIGHT 0 * PCP DR. REESE ([place]) 0 * Pharmacy [facility] [phone] * Preadmission Environment Home with Family 0 * ADLs Independent 0 * Equipment Walker 0 * List name and contact numbers for known caregivers / representatives who currently or will assist patient after discharge: JB (DAUGHTER) [phone] 0 * Community resources currently utilized None 0 * Additional services required to return to the preadmission environment? Yes 0 * Can the patient safely return to the preadmission environment? Yes 0 * Has this patient been hospitalized within the prior 30 days at any hospital? Yes 0 Grand Total: 0
[2017-08-04 12:04] VITALS: BP 126/64
[2017-08-04 16:18] VITALS: BP 137/60
--- NOTE | 2017-08-04 19:07 | NUR ---
PT IS LYING IN BED VISITING WITH GUEST, VERBALIZED IV IS BURNING AND ASKED FOR POTASSIUM TO BE SLOWED, REDUCED TO 40. BILI DRAIN IN TACT, NO SIGNS OF DISTRESS, CONTINUE TO MONITOR PT
[2017-08-04 22:08] VITALS: BP 157/65
--- NOTE | 2017-08-04 23:55 | NUR ---
PT IN BED WITH EYES OPEN AND LIGHTS OFF. FAMILY IN CHAIR NEXT TO BED. STATES RELIEF FROM PAIN AT 5/10. NO CONCERNS NOTED. CALL LIGHT IN REACH.
--- NOTE | 2017-08-04 23:58 | NUR ---
PT IN BED WITH EYES OPEN AND CHEST RISING. NO CONCERNS OR COMPLANTS NOTED AT THIS TIME. CALL LIGHT IN REACH.
[2017-08-05] VITALS (7 sets, daily range): BP systolic 115–152; BP diastolic 60–91
--- NOTE | 2017-08-05 01:44 | NUR ---
PT IN BED WITH EYES CLOSED AND CHEST RISING. EASILY AROUSED UPON ENTRY. NO CONCERNS NOTED. CALL LIGHT IN REACH.
--- NOTE | 2017-08-05 04:29 | NUR ---
PT IN BED WITH EYES OPEN WITH COMPLAINTS OF NAUSEA. PRN ZOFRAN GIVEN IV. NO OTHER NEEDS OR CONCERN MADE KNOWN. CALL LIGHT IN REACH.
[2017-08-05 06:02] LABS: BASOPHILS 0 % (0-2); HEMATOCRIT 27.9 % (36.0-48.0); HEMOGLOBIN 8.5 g/dL (12-16); IMMATURE GRANULOCYTES 0.4 % (0-5); LYMPHOCYTES 25.7 % (15-50); MCH 23.4 pg (26.0-34.0); MCHC 30.5 g/dL (31.0-37.0); MCV 76.6 fL (80.0-100.0); MONOCYTES 10.5 % (2-11); NEUTROPHILS 59.4 % (40-80); PLATELET COUNT 234 10x3/uL (130-400); RBC 3.64 10x6/uL (4.00-5.40); WBC 4.8 10x3/uL (4.8-10.8)
[2017-08-05 06:17] LABS: CALC OSMOLALITY 272 mosm/kg (275-300); CALCIUM 8.5 mg/dL (8.5-10.1); CARBON DIOXIDE 30.5 mmol/L (21.0-32.0); CHLORIDE - SERUM 103 mmol/L (98-107); CREATININE - SERUM 0.5 mg/dL (0.6-1.3); GLUCOSE 102 mg/dL (74-106); MAGNESIUM - SERUM 1.8 mg/dL (1.8-2.4); SODIUM 138 mmol/L (136-145); UREA NITROGEN 4 mg/dL (7-18); eGFR NON AFRICAN AMERICAN > 90 mL/min (90-120)
[2017-08-05 06:18] LABS: POTASSIUM - SERUM 3.6 mmol/L (3.5-5.1)
--- NOTE | 2017-08-05 07:30 | NUR ---
A&O, DENIES NEEDS, NO DISTRESS NOTED, CALL LIGHT IN REACH, BED LOWEST POSITION, SON AT BEDSIDE, WILL CONTINUE TO MONITOR
--- NOTE | 2017-08-05 10:41 | NUR ---
CM REASSESSMENT NOTE: PATIENT SIGNED CURRY FORM FOR 1)[facility], 2)[facility], 3) [facility]. SHALINI COULD NOT SEE HER TILL FRIDAY NOR COULD [facility]. [facility] IS CHECKING ON HER INSURANCE AND STATED THEY COULD SEE HER TOMORROW IF INSURANCE IS ACCEPTED.
--- NOTE | 2017-08-05 11:03 | NUR ---
HAD A BOWEL MOVEMENT
--- NOTE | 2017-08-05 12:55 | NUR ---
NUTRITION F/U CHART REVIEWED. PT TOLERATING CURRENT DIET, +BM RECORDED. WILL CONTINUE TO PROVIDE DIET, MONITOR PT PROGRESS. RD FOLLOWING
--- NOTE | 2017-08-05 16:02 | NUR ---
PT RESTING IN BED WITH WITH LAB AT BEDSIDE. NO SIGNS OF DISTRESS NOTED. BED IN LOW POSITION AND CALL LIGHT WITHIN REACH. WILL CONTINUE TO MONITOR.
--- NOTE | 2017-08-05 17:18 | NUR ---
PT RECIEVED FROM [employer]. DRESSING TO LEFT MID BACK FROM DRAINAGE TUBE CLEAN DRY AND INTACT-BROWNISH DRAINAGE NOTED TO BAG. PT STATES SHE IS COMFORTABLE AT PRESENT. STATES SHE IS GOING TO HAVE CHEST TUBE PLACED IN AM. NO ORDERS AT PRESENT. CALL LIGHT IN REACH
--- NOTE | 2017-08-05 20:14 | NUR ---
PT AWAKE AND ALERT SITTING UP IN BED. STATED SHE IS GOING TO TAKE A SHOWER WHEN HER DAUGHTER GETS HERE LATER. DENIES ANY OTHER NEEDS AT THIS TIME. WILL CONTINUE TO MONITOR.
--- NOTE | 2017-08-06 02:00 | NUR ---
DC'C IV LEFT WRIST CATH TIP INTACT. RESITED 22G RIGHT HAND X-2 ATTEMPT. PRN ZOFRAN ADMINISTERED FOR NAUSEA. CALL LIGHT IN REACH.
--- NOTE | 2017-08-06 02:05 | NUR ---
20G IV SITED TO LEFT HAND X 2 ATTEMPTS. GOOD BLOOD RETURN. FLUSHES W/O DIFFICULTY. PT TOLERATED WELL. FLUIDS RECONNECTED AT THIS TIME. SIDE RAILS X 1. BED IN LOWEST POSITION. CALL LIGHT WITHIN REACH.
[2017-08-06 03:30] VITALS: BP 159/99
--- NOTE | 2017-08-06 04:04 | NUR ---
PRN NORCO ADMINISTERED AT THIS TIME FOR PAIN 05/22.
[2017-08-06 05:56] LABS: BASOPHILS 0.2 % (0-2); EOSINOPHILS 2.4 % (0-7); HEMATOCRIT 29.3 % (36.0-48.0); HEMOGLOBIN 8.9 g/dL (12-16); IMMATURE GRANULOCYTES 0.6 % (0-5); LYMPHOCYTES 17.7 % (15-50); MCH 23.4 pg (26.0-34.0); MCHC 30.4 g/dL (31.0-37.0); MCV 77.1 fL (80.0-100.0); MEAN PLATELET VOLUME 9.5 fL (7.4-10.4); MONOCYTES 11.1 % (2-11); PLATELET COUNT 261 10x3/uL (130-400); RDW 20.4 % (11.5-14.5)
--- NOTE | 2017-08-06 07:39 | NUR ---
A&O, DAUGHTER AT BEDSIDE, DENIES NEEDS, NO DISTRESS NOTED, CALL LIGHT IN REACH, BED LOWEST POSITION, WILL CONTINUE TO MONITOR
[2017-08-06 07:46] LABS: CALCIUM 8.8 mg/dL (8.5-10.1); CARBON DIOXIDE 32.5 mmol/L (21.0-32.0); CHLORIDE - SERUM 100 mmol/L (98-107); GLUCOSE 103 mg/dL (74-106); INR 1.01 (0.85-1.17); MAGNESIUM - SERUM 1.7 mg/dL (1.8-2.4); POTASSIUM - SERUM 3.1 mmol/L (3.5-5.1); PROTIME 13.2 SECONDS (11.6-15.0); SODIUM 142 mmol/L (136-145)
[2017-08-06 07:47] LABS: APTT 38.6 SECONDS (22.8-39.4)
[2017-08-06 07:51] LABS: CALC OSMOLALITY 280 mosm/kg (275-300); CREATININE - SERUM 0.7 mg/dL (0.6-1.3); UREA NITROGEN 6 mg/dL (7-18); eGFR NON AFRICAN AMERICAN > 90 mL/min (90-120)
[2017-08-06 08:10] VITALS: BP 154/82
--- NOTE | 2017-08-06 11:40 | NUR ---
RECEIVED TO FLOOR FROM CHEST TUBE PLACEMENT, PLACED ON 20CM WALL SUCTION, WILL CONTINUE TO MONITOR
--- NOTE | 2017-08-06 11:40 | NUR ---
PT RETURNED TO FLOOR FROM CHEST TUBE PLACEMENT, DENIES NEEDS, CHEST TUBE PLACED ON WALL SUCTION 20CM, WILL CONTINUE TO MONITOR
--- NOTE | 2017-08-06 12:25 | NUR ---
SLEEPING, SON AT BEDSIDE, CALL LIGHT IN REACH, WILL CONTINUE TO MONITOR
--- NOTE | 2017-08-06 13:10 | NUR ---
SLEEPING AT THIS TIME WITH RESPIRATIONS EVEN AND NON LABORED. SON AT BEDSIDE. CHEST TUBE PATENT TO LEFT CHEST. CALL LIGHT IN REACH, WILL CONTINUE WITH PLAN OF CARE.
[2017-08-06 19:30] VITALS: BP 162/89
[2017-08-06 23:30] VITALS: BP 131/66
[2017-08-07 04:00] VITALS: BP 152/71
[2017-08-07 06:47] LABS: MAGNESIUM - SERUM 2.1 mg/dL (1.8-2.4)
[2017-08-07 06:52] LABS: POTASSIUM - SERUM 3.6 mmol/L (3.5-5.1)
[2017-08-07 08:30] VITALS: BP 129/64
[2017-08-07 12:13] VITALS: BP 146/77
[2017-08-07 15:48] VITALS: BP 147/74
[2017-08-07 20:00] VITALS: BP 151/79
--- NOTE | 2017-08-07 21:29 | NUR ---
IV LEAKING. D/C IV WITH CATHETER INTACT
--- NOTE | 2017-08-07 21:46 | NUR ---
IV STARTED TO RIGHT WRIST, 22G.
--- NOTE | 2017-08-07 21:51 | NUR ---
ADOLFO SCANNED AT 1758 NOT INFUSED. STARTED NOW. CALLED PHARMACY SPOKE WITH FRANKLYN, PHARMACIST, HE RETIMED IT TO START NOW.
[2017-08-08] VITALS: BP 168/75
[2017-08-08 04:00] VITALS: BP 158/97
[2017-08-08 08:50] VITALS: BP 162/69
--- NOTE | 2017-08-08 09:25 | NUR ---
ASSESSMENT COMPLETE. IV TO R WRIST PATENT. LEFT CHEST TUBE TO 20 CM SUCTION. L BILI DRAIN PATENT. DROWSY THIS AM. ANSWERS QUESTIONS BUT FALLS TO SLEEP QUICKLY. SCD'S IN USE TO BILAT LEGS. FAMILY AT BEDSIDE. DENIES ANY NEEDS AT THIS TIME.
--- NOTE | 2017-08-08 11:20 | NUR ---
CT TUBE CONNECTED BACK TO SUCTION. PULLING AT IV. STATES THAT IT IS PULLING. EXTRA TAPE REMOVED. FAMILY AT BEDSIDE.
--- NOTE | 2017-08-08 12:52 | NUR ---
CONTINUES TO BE DROWSY AND NEEDING FREQUENT REDIRECTION. WHEN GETTING UP TO BEDSIDE COMMODE REQUIRED REDIRECTION BECAUSE SHE WAS WALKING THE OPPOSITE DIRECTION OF COMMODE. FLEETS ENEMA GIVEN. INSTRUCTED FAMILY TO NOTIFY STAFF WHEN ASSISTANCE WAS NEEDED TO GET HER UP.
--- NOTE | 2017-08-08 12:55 | NUR ---
SPOKE WITH DR PEREZ REGARDING DROWSINESS AND REQUIRING FREQUENT REDIRECTION. VSS. 178/85 77 16 98% ON RA.
[2017-08-08 13:03] VITALS: BP 176/85
--- NOTE | 2017-08-08 13:25 | NUR ---
LARGE BOWEL MOVEMENT NOTED AFTER FLEETS ENEMA.
--- NOTE | 2017-08-08 15:54 | NUR ---
TPA GIVEN PER Hiram RANDALL FROM RADIOLOGY
[2017-08-08 16:06] LABS: ANION GAP 13.3 mmol/L (8-16); CALCIUM 8.8 mg/dL (8.5-10.1); CARBON DIOXIDE 29.2 mmol/L (21.0-32.0); POTASSIUM - SERUM 3.5 mmol/L (3.5-5.1)
[2017-08-08 16:45] VITALS: BP 170/83
--- NOTE | 2017-08-08 17:30 | NUR ---
L TLSC INSERTED BY DR PEREZ WITHOUT DIFFICULTY. PATIENT TOLERATED PROCEDURE WELL.
--- NOTE | 2017-08-08 18:02 | NUR ---
OFF FLOOR TO CT VIA BED.
--- NOTE | 2017-08-08 18:30 | NUR ---
RETURNED TO ROOM FROM CT. CHEST TUBE RECONNECTED TO SUCTION. O2 2L NC IN USE.
--- NOTE | 2017-08-08 19:49 | NUR ---
SPOKE WITH DR PEREZ, ADVISED ALL ESTS CAME BACK NORMAL, BUILD UP OF PHENEGRAN MAY BE CAUSE, WILL RELAY TO FAMILY THAT ARE CONCERNED. WILL CONTINUE TO MONITOR AND CALL DR PEREZ WITH ANY CONCERNS
[2017-08-08 20:00] VITALS: BP 159/74
--- NOTE | 2017-08-08 21:25 | NUR ---
SPOKE TO PT AND FAMILY IN REGARSD TO CONCERNS WITH PT'S AMS. PT MOTHER STATED THAT PT STARTED FEELING BETTER AND COMING BACK TO HERSELF WHEN O2 WAS APPLIED, PT IS CURRENTLY ON 2L O2. FAMILY AND PATIENT WANT ABG'S TO BE DONE. ADVISED PT THAT DR PEREZ WILL ORDER AFTER EVERYTHING ELSE IS RULED OUT AND HE FEELS THE NEED TO. PT WANTED ME TO CALL RESP AND DR TO HAVE ABG'S ORDERED. EXPLAINED TO PT AND FAMILY THAT ALL MEASURES ARE BEING TAKEN TO MAKE SURE PT IS WELL CARED FOR. PT DAUGHTER AND OTHER FAMILY CONTINUE TO STATE THAT PT WAS OVER MEDICATED, REITERATED THAT PT HAS NOT BEEN GIVEN ANY NARCOTICS SINCE YESTERDAY AT 1600.WILL CONTINUE PLAN OF CARE
[2017-08-09] VITALS: BP 163/72
--- NOTE | 2017-08-09 00:50 | NUR ---
ASSISTED PATIENT FROM THE BED TO THE BEDSIDE COMMODE. PATIENT VOIDED. PATIENT HAVING TROUBLE SAYING THE WORDS SHE IS SHE TRYING TO SAY, SHE SAID THAT HAS BEEN GOING ON ALL DAY. HER DAUGHTER AND FRIEND IS IN THE ROOM AT THE BEDSIDE. PATIENT IS WEARING A NASAL CANNULA, RECIEVING OXYGEN AT 2L/MIN. ASSISTED PATIENT BACK TO BED. SHE DENIES ANY OTHER NEEDS AT THIS TIME.
[2017-08-09 04:00] VITALS: BP 155/93
--- NOTE | 2017-08-09 07:30 | NUR ---
PT STATES SHE IS HAVING AN EASIER TIME WITH SPEACH TODAY, OCCASIONALLY SAYS THE OPPOSITE OF WHAT SHE'S TRYING TO SAY, DENIES NEEDS, CALL LIGHT IN REACH, BED LOWEST POSITION, FAMILY AT BEDSIDE, WILL CONTINUE TO MONITOR
[2017-08-09 09:26] LABS: BASOPHILS 0.2 % (0-2); EOSINOPHILS 2.2 % (0-7); HEMATOCRIT 29.5 % (36.0-48.0); HEMOGLOBIN 8.8 g/dL (12-16); IMMATURE GRANULOCYTES 0.2 % (0-5); LYMPHOCYTES 24.6 % (15-50); MCH 23.2 pg (26.0-34.0); MCHC 29.8 g/dL (31.0-37.0); MCV 77.6 fL (80.0-100.0); MEAN PLATELET VOLUME 8.5 fL (7.4-10.4); MONOCYTES 8.9 % (2-11); NEUTROPHILS 63.9 % (40-80); PLATELET COUNT 288 10x3/uL (130-400); RDW 20.8 % (11.5-14.5); WBC 4.5 10x3/uL (4.8-10.8)
[2017-08-09 09:40] LABS: ANION GAP 10.3 mmol/L (8-16); BILIRUBIN - TOTAL 0.56 mg/dL (0.2-1.3); CALCIUM 8.6 mg/dL (8.5-10.1); CARBON DIOXIDE 29.8 mmol/L (21.0-32.0); CREATININE - SERUM 1.1 mg/dL (0.6-1.3); POTASSIUM - SERUM 3.1 mmol/L (3.5-5.1); PROTEIN - SERUM 6.4 g/dL (6.4-8.2)
--- NOTE | 2017-08-09 13:00 | NUR ---
UP TO BEDSIDE COMMODE, FAMILY AT BEDSIDE, WILL CONTINUE TO MONITOR
[2017-08-09 13:15] VITALS: BP 149/92
[2017-08-09 16:33] VITALS: BP 153/80
--- NOTE | 2017-08-09 17:38 | NUR ---
PATIENT RESTING IN BED WITH GUESTS AT BEDSIDE AND DENIES NEEDS AT THIS TIME. BED IN LOWEST POSITION AND CALL LIGHT WITHIN REACH. ENCOURAGED THE PT TO CALL IF SHE HAS NEEDS.
--- NOTE | 2017-08-09 19:32 | NUR ---
ASSISTED PATIENT TO THE BEDSIDE COMMODE, SHE HAD A SMALL BOWEL MOVEMENT, BUT IT MIXED WITH URINE, SO IT WAS UNABLE TO BE COLLECTED FOR STOOL SAMPLE.
[2017-08-09 20:00] VITALS: BP 154/66
--- NOTE | 2017-08-09 23:15 | NUR ---
ASSISTED PATIENT TO THE BATHROOM TO HAVE A BOWEL MOVEMENT. PATIENT ASKED IF SHE HAS TO WEAR THE NASAL CANNULA. PATIENT AND HER FAMILY VERBALIZED THAT THEY NOTICED THAT HER MENTAL STATUS IMPROVED YESTERDAY AFTER SHE PUT THE OXYGEN ON. PATIENT HAS BEEN ALERT AND ORIENTED WITHOUT ANY SPEECH DEFICTS ALL EVENING, SHE HAS BEEN VERY CONVERSATIONAL. EXPLAINED TO PATIENT THAT HER OXYGEN SATURATION IS WITHIN NORMAL LIMITS, AND I AM FINE WITH HER TAKING OFF THE OXYGEN. REMOVED THE NASAL CANNULA BEFORE SHE GOT UP TO THE BATHROOM. SHE HAD A BOWEL MOVEMENT. ASSISTED HER BACK TO BED.
[2017-08-10 00:18] VITALS: BP 156/64
--- NOTE | 2017-08-10 01:15 | NUR ---
ANSWERED PATIENT'S CALL LIGHT, SHE SAID SHE NEEDS TO USE THE BATHROOM. SHE STATED "AREN'T YOU SUPPOSED TO BE GONE BY NOW?" WHILE LOOKING AT THE CLOCK. I STATED "NO?" SHE STATED "OH, I THOUGHT IT WAS AFTER SHIFT CHANGE I WAS WONDERING WHO MY NURSE WAS GOING TO BE." I STATED "NO, I DO NOT LEAVE UNTIL 0700." SHE STATED "OH YEAH, OKAY. I DO NOT KNOW WHAT I WAS THINKING." PATIENT TRIED TO LOWER THE FOOT OF THE BED AND INSTEAD SHE LOWERED AND RAISED THE HOB, I HAVE SEEN HER LOWER AND RAISE THE FOOT AND HEAD OF THE BED MULTIPLE TIMES TONIGHT WITHOUT DIFFICULTY. I LOWERED THE FOOT OF THE BED FOR HER. ASSISTED HER TO THE BEDSIDE COMMODE. I TOLD PATIENT "I THINK WE SHOULD PUT THE NASAL CANNULA ON, BECAUSE YOU SEEM LIKE YOU MAY BE GETTING A LITTLE CONFUSED AGAIN." PATIENT AGREED AND PUT THE NASAL CANNULA ON, IT IS ON 1.5L/MIN. ASSISTED HER BACK TO BED. FAMILY MEMBER IS AT BEDSIDE. PATIENT DENIES NEEDS AT THIS TIME.
--- NOTE | 2017-08-10 02:30 | NUR ---
ASSISTED PATIENT TO THE BEDSIDE COMMODE, SHE VOIDED. SPEECH IS CLEAR. ALERT AND ORIENTED. NO MENTAL STATUS IMPAIRMENTS NOTED. ASSISTED PATIENT BACK TO BED. SHE DENIES NEEDS.
--- NOTE | 2017-08-10 04:18 | NUR ---
MARKED CHEST TUBE OUTPUT AT THE 400ML CHELSI ON THE CANNESTER. THE LAST TIME THE CHEST TUBE OUTPUT WAS DOCUMENTED OR MARKED ON THE CANNESTER WAS 08/08 IT WAS MARKED AT THE 180ML CHELSI. UNABLE TO PROVIDE AN ACCURATE OUTPUT FOR THIS SHIFT.
[2017-08-10 04:34] VITALS: BP 154/84
[2017-08-10 06:29] LABS: ALBUMIN 1.9 g/dL (3.4-5.0); ANION GAP 10.8 mmol/L (8-16); BILIRUBIN - TOTAL 0.49 mg/dL (0.2-1.3); CALCIUM 8.8 mg/dL (8.5-10.1); CARBON DIOXIDE 29.9 mmol/L (21.0-32.0); CREATININE - SERUM 1.1 mg/dL (0.6-1.3); POTASSIUM - SERUM 3.7 mmol/L (3.5-5.1); PRE-ALBUMIN 10.9 mg/dL (18.0-35.7); PROTEIN - SERUM 6.4 g/dL (6.4-8.2); T4 THYROXIN - FREE 1.58 ng/dL (0.76-1.46); THYROID STIMULATING HORMONE 1.58 uIU/mL (0.36-3.74)
--- NOTE | 2017-08-10 07:10 | NUR ---
REPORT RECEIVED, ASSUMED CARE OF PT. RESTING, FAMILY/FRIEND AT BEDSIDE. NO NEEDS VOICED AT THIS TIME. L CHEST TUBE IN PLACE, L ABD BILI DRAIN IN PLACE. 1.5L O2 IN PLACE VIA NASAL CANNULA. L SUBCLAVIAN INFUSING ORDERED, DRSG C/D/I. BED IN LOWEST POSITION, SIDE RAILS UP X 2, CALL LIGHT WITHIN REACH.
[2017-08-10 08:43] VITALS: BP 139/77
[2017-08-10 11:51] VITALS: BP 148/73
[2017-08-10 16:49] VITALS: BP 140/86
--- NOTE | 2017-08-10 19:40 | NUR ---
RECEIVED REPORT AND ASSUMED CARE FOR PT. LEFT CT IN PLACE, LEFT BILI DRAIN IN PLACE DRSG C/D/I. LEFT SUB-CLAVIAN INFUSING PER ORDERS. ASSISTED PT TO BSC WITHOUT DIFFICULTY. SCD'S OFF AT THIS TIME. DENIES ANY OTHER NEEDS. CALL LIGHT IN REACH, SRX2, BED LOW. WILL CONTINUE TO MONITOR.
[2017-08-10 20:00] VITALS: BP 156/81
--- NOTE | 2017-08-10 21:10 | NUR ---
FLUSHED BILIDRAIN WITH 10ML SALINE PER ORDERS.
--- NOTE | 2017-08-10 21:30 | NUR ---
EMPTIED 10ML FROM BILI DRAIN.
[2017-08-11] VITALS (7 sets, daily range): BP systolic 146–172; BP diastolic 55–84
[2017-08-11 05:33] LABS: BASOPHILS 0 % (0-2); EOSINOPHILS 1.4 % (0-7); HEMATOCRIT 28.9 % (36.0-48.0); HEMOGLOBIN 8.5 g/dL (12-16); IMMATURE GRANULOCYTES 0.6 % (0-5); MCHC 29.4 g/dL (31.0-37.0); MCV 78.3 fL (80.0-100.0); MEAN PLATELET VOLUME 8.8 fL (7.4-10.4); MONOCYTES 9.5 % (2-11); NEUTROPHILS 64.5 % (40-80); PLATELET COUNT 262 10x3/uL (130-400); RBC 3.69 10x6/uL (4.00-5.40); RDW 21.1 % (11.5-14.5); WBC 3.6 10x3/uL (4.8-10.8)
[2017-08-11 06:24] LABS: ANION GAP 11.9 mmol/L (8-16); BILIRUBIN - TOTAL 0.4 mg/dL (0.2-1.3); CALCIUM 8.9 mg/dL (8.5-10.1); CARBON DIOXIDE 28.7 mmol/L (21.0-32.0); CREATININE - SERUM 1.2 mg/dL (0.6-1.3); MAGNESIUM - SERUM 1.9 mg/dL (1.8-2.4); POTASSIUM - SERUM 3.6 mmol/L (3.5-5.1); PROTEIN - SERUM 6.4 g/dL (6.4-8.2)
--- NOTE | 2017-08-11 14:53 | NUR ---
NUTRITION F/U CHART REVIEWED. PT NOW ON PROCALAMINE @ 75 CC/HR. PROVIDING 441 MOLLY, 54 GM PROTEIN PER DAY. < 25% INTAKE REG DIET. WILL CONTINUE TO PROVIDE DIET, MONITOR PO INTAKE. RD FOLLOWING
[2017-08-11 19:09] LABS: AEROBE ID Final report (())
--- NOTE | 2017-08-11 19:30 | NUR ---
RECEIVED REPORT AND ASSUMED CARE OF PT. DENIES PAIN AT THIS TIME. LEFT SUB-CLAVIAN PATENT DRSG C/D/I. LEFT CHEST TUBE TO WATER SEAL, LEFT BILIDRAIN IN PLACE DRSG'S C/D/I. O2 1.5L VIA NC. CALL LIGHT IN REACH, WILL CONTINUE TO MONITOR.
[2017-08-12 04:00] VITALS: BP 159/87
[2017-08-12 06:52] LABS: BASOPHILS 0 % (0-2); EOSINOPHILS 4.3 % (0-7); HEMOGLOBIN 8.6 g/dL (12-16); IMMATURE GRANULOCYTES 0.8 % (0-5); LYMPHOCYTES 22.6 % (15-50); MCH 23.3 pg (26.0-34.0); MCHC 29.7 g/dL (31.0-37.0); MCV 78.6 fL (80.0-100.0); MEAN PLATELET VOLUME 8.6 fL (7.4-10.4); MONOCYTES 9.4 % (2-11); NEUTROPHILS 62.9 % (40-80); PLATELET COUNT 228 10x3/uL (130-400); RBC 3.69 10x6/uL (4.00-5.40); RDW 21.4 % (11.5-14.5); WBC 3.9 10x3/uL (4.8-10.8)
--- NOTE | 2017-08-12 07:28 | NUR ---
PT REFUSED AM TX STATES THE MD TOLD HER SHE "DIDNT" HAVE TO PULMONARY VITAL SIGNS WITHIN NORMAL LIMITS NO S/S OF IMMEDIATE RESP DISTRESS
[2017-08-12 07:31] LABS: BILIRUBIN - TOTAL 0.37 mg/dL (0.2-1.3); CALCIUM 9.1 mg/dL (8.5-10.1); CARBON DIOXIDE 29.5 mmol/L (21.0-32.0); CREATININE - SERUM 1.1 mg/dL (0.6-1.3); POTASSIUM - SERUM 3.5 mmol/L (3.5-5.1); PROTEIN - SERUM 6.5 g/dL (6.4-8.2)
[2017-08-12 08:15] VITALS: BP 154/78
--- NOTE | 2017-08-12 09:00 | NUR ---
ASSESSMENT PER FLOW SHEET.PT IS WITHOUT DISTRESS. CHEST TUBE PULLED BY IR,DRESSING TO SITE CDI. BILI DRAIN LL QUAD IN PLACE WITH YELLOW/GREENISH DRAINAGE,MINIMAL AMOUNT.PT SKIN IS VERY DRY.MONITOR FOR NEEDS
[2017-08-12 09:16] LABS: IMMUNOGLOBULIN A 229 mg/dL (87-352); IMMUNOGLOBULIN G 1105 mg/dL (700-1600)
[2017-08-12 11:57] VITALS: BP 169/94
--- NOTE | 2017-08-12 15:12 | NUR ---
PT REFUSED TX
[2017-08-12 16:51] VITALS: BP 156/80
--- NOTE | 2017-08-12 18:41 | NUR ---
REMAINS WITHOUT CHANGE FROM INITIAL ASSESSMENT. STILL NOT EATING FOOD AND DRINKING VERY LITTLE.CONT PLAN OF CARE
[2017-08-12 21:30] VITALS: BP 147/78
[2017-08-13] VITALS (7 sets, daily range): BP systolic 137–164; BP diastolic 58–87
[2017-08-13 05:12] LABS: BASOPHILS 0 % (0-2); EOSINOPHILS 6.5 % (0-7); HEMATOCRIT 29.1 % (36.0-48.0); HEMOGLOBIN 8.7 g/dL (12-16); IMMATURE GRANULOCYTES 0.5 % (0-5); LYMPHOCYTES 26.3 % (15-50); MCH 23.6 pg (26.0-34.0); MCHC 29.9 g/dL (31.0-37.0); MCV 78.9 fL (80.0-100.0); MEAN PLATELET VOLUME 9.1 fL (7.4-10.4); MONOCYTES 9.3 % (2-11); NEUTROPHILS 57.4 % (40-80); PLATELET COUNT 213 10x3/uL (130-400); RBC 3.69 10x6/uL (4.00-5.40); RDW 21.6 % (11.5-14.5)
[2017-08-13 05:28] LABS: ALBUMIN 2.2 g/dL (3.4-5.0); ANION GAP 9.5 mmol/L (8-16); BILIRUBIN - TOTAL 0.47 mg/dL (0.2-1.3); CALCIUM 9.2 mg/dL (8.5-10.1); CARBON DIOXIDE 30.9 mmol/L (21.0-32.0); CREATININE - SERUM 1.3 mg/dL (0.6-1.3); POTASSIUM - SERUM 3.4 mmol/L (3.5-5.1); PROTEIN - SERUM 6.8 g/dL (6.4-8.2)
--- NOTE | 2017-08-13 07:55 | NUR ---
PT AOX4 RESP EVEN AND NONLABORED PT DENIES NEEDS AT THIS TIME IV TO LEFT SUBCLAVIAN PATENT AND INTACT AT THIS TIME SRX2 BED AT LOWEST SETTING CALL LIGHT WITHIN REACH WILL CONTINUE TO MONITOR
--- NOTE | 2017-08-13 09:07 | NUR ---
PTS. RANDOM VANCOMYCIN LEVEL CAME BACK 24. THIS IS ROUGLY 25 HOURS AFTER THE LAST DOSE. WILL GET ANOTHER LEVEL IN THE AM TO VERIFY THAT IT HAS COME BACK TO AN ACCEPTABLE RANGE. IF IN RANGE WILL START VANCO 1 GRAM Q24H, RECHECKING A TROUGH AFTER THAT DOSE TO VERIFY
--- NOTE | 2017-08-13 19:45 | NUR ---
AOX4, DENIES ANY NEEDS AT THIS TIME. LEFT SUB-CLAVIAN NS @ 10, PROCAL @ 75. CALL LIGHT IN REACH, WILL CONTINUE TO MONITOR.
--- NOTE | 2017-08-13 22:00 | NUR ---
CVL DRESSING CHANGED AT THIS TIME.
--- NOTE | 2017-08-14 00:10 | NUR ---
REQUESTED KLONOPIN FOR ANXIETY. MED GIVEN PER ORDERS.
[2017-08-14 04:00] VITALS: BP 155/89
--- NOTE | 2017-08-14 07:05 | NUR ---
REPORT RECEIVED, ASSUMED CARE OF PT. L SUBCLAVIAN INFUSING ORDERED, DRSG C/D/I. SCD'S IN PLACE BILATERALLY. 2L O2 VIA NASAL CANNULA IN PLACE. BED IN LOWEST POSITION, SIDE RAILS UP X 2, CALL LIGHT WITHIN REACH.
[2017-08-14 08:16] VITALS: BP 157/69
[2017-08-14 09:10] LABS: BASOPHILS 0.2 % (0-2); EOSINOPHILS 4.8 % (0-7); HEMATOCRIT 28.3 % (36.0-48.0); HEMOGLOBIN 8.4 g/dL (12-16); IMMATURE GRANULOCYTES 0.5 % (0-5); MCH 23.2 pg (26.0-34.0); MCHC 29.7 g/dL (31.0-37.0); MCV 78.2 fL (80.0-100.0); MEAN PLATELET VOLUME 9.6 fL (7.4-10.4); MONOCYTES 9.1 % (2-11); NEUTROPHILS 59.4 % (40-80); PLATELET COUNT 192 10x3/uL (130-400); RBC 3.62 10x6/uL (4.00-5.40); RDW 21.3 % (11.5-14.5); WBC 4.2 10x3/uL (4.8-10.8)
[2017-08-14 09:24] LABS: ALBUMIN 2.2 g/dL (3.4-5.0); ANION GAP 11.9 mmol/L (8-16); BILIRUBIN - TOTAL 0.45 mg/dL (0.2-1.3); CALCIUM 9.1 mg/dL (8.5-10.1); CARBON DIOXIDE 28.7 mmol/L (21.0-32.0); CREATININE - SERUM 1.2 mg/dL (0.6-1.3); MAGNESIUM - SERUM 1.9 mg/dL (1.8-2.4); POTASSIUM - SERUM 3.6 mmol/L (3.5-5.1); VANCOMYCIN - RANDOM 12.6 ug/mL (10.0-20.0)
--- NOTE | 2017-08-14 09:35 | NUR ---
RANDOM VANCOMYCIN THIS MORNING WAS BACK TO AN ACCEPTABLE LEVEL. RESTARTED CONSERVATIVELY AT 1 GRAM Q24H WILL GET A LEVEL IN A COUPLE OF DOSES TO MAKE SURE WE ARE ON [employer]
[2017-08-14 12:33] VITALS: BP 151/77
[2017-08-14 15:35] VITALS: BP 139/84
--- NOTE | 2017-08-14 19:37 | NUR ---
RECIEVED UP IN BED WITH TV ON AND EYES OPEN. PLEASANT AND COOPERATIVE. DENIES ANY PAIN. IV RUNNING PROCAL AT 30CC/HR. AND NS AT 10CC/HR. LEFT SUBCLAVIAN IN PLACE AND PATENT WITH DRESSING CLEAN, DRY AND INTACT.
[2017-08-14 20:00] VITALS: BP 162/67
--- NOTE | 2017-08-14 20:06 | NUR ---
EMESIS X1. STATED " WHEN I HAVE A COUGHING FIT IT MAKES ME THROW UP". TUSSIONEX GIVEN FOR COUGH.
[2017-08-15 04:00] VITALS: BP 140/72
[2017-08-15 07:01] LABS: BASOPHILS 0.2 % (0-2); EOSINOPHILS 5.4 % (0-7); HEMATOCRIT 27.9 % (36.0-48.0); HEMOGLOBIN 8.3 g/dL (12-16); MCH 23.1 pg (26.0-34.0); MCHC 29.7 g/dL (31.0-37.0); MCV 77.7 fL (80.0-100.0); MEAN PLATELET VOLUME 9.2 fL (7.4-10.4); MONOCYTES 9.7 % (2-11); NEUTROPHILS 58.7 % (40-80); PLATELET COUNT 196 10x3/uL (130-400); RBC 3.59 10x6/uL (4.00-5.40); RDW 21.2 % (11.5-14.5)
[2017-08-15 07:18] LABS: ANION GAP 11.8 mmol/L (8-16); CALCIUM 9.3 mg/dL (8.5-10.1); CARBON DIOXIDE 28.6 mmol/L (21.0-32.0); CREATININE - SERUM 1.4 mg/dL (0.6-1.3); MAGNESIUM - SERUM 1.7 mg/dL (1.8-2.4); POTASSIUM - SERUM 3.4 mmol/L (3.5-5.1)
[2017-08-15 08:00] VITALS: BP 142/72
[2017-08-15 12:29] VITALS: BP 140/82
--- NOTE | 2017-08-15 13:29 | NUR ---
NUTRITION F/U CHART REVIEWED, PT VISIT. NO INTAKE BREAKFAST. ~50% INTAKE LUNCH PROCALAMINE @ 125 CC/HR PROVIDING 735 KCAL, 90 GM PROTEIN PER DAY. MAY BENEFIT FROM INTRALIPIDS 250 CC Q 48 HOURS FOR ADDITIONAL [address] FOLLOWING
[2017-08-15 16:13] LABS: AEROBE ID Final report (())
--- NOTE | 2017-08-15 19:00 | NUR ---
REPORT RECEIVED AND CARE OF PT ASSUMED. PT LYING IN SUPINE POSITION WATCHING TV. LEFT SC PATENT WITH PROCALAMINE INFUSING AT 125 ML / HR. TELEMETRY IN USE AND READING 77 SR AT THIS ASSESSMENT. WILL MONITOR FOR NEEDS. CALL LIGHT WITHIN REACH.
[2017-08-15 20:00] VITALS: BP 158/73
--- NOTE | 2017-08-15 21:49 | NUR ---
[facility] MEDICAITONS GIVEN. PT REFUSED VITAMIN. WILL CONTINUE TO MONITOR FOR NEEDS.
--- NOTE | 2017-08-15 21:52 | CN ---
PATIENT NAME:CHERELLE STERLING MEDICAL RECORD: [id number] : 73 LOCATION:[id number] ADMIT DATE: 08/01/17 ACCOUNT: [id number] CONSULTING PHYSICIAN: KELLI TRIANA III, MD REFERRING PHYSICIAN: DANILO PEREZ MD DATE OF CONSULTATION: 08/15/2017 FINDINGS: This is a 41-year-old white female who was admitted to the hospital on 08/01/2017. She has numerous ongoing medical problems including empyema, abdominal abscess, Ad's thyroiditis, pleural effusion, peritonitis. The patient has a past history of gastric bypass for obesity. Consultation was requested to rule out depression, although there is no documentation of depression anywhere in the medical record and the patient herself denies any past psychiatric history. However, on presentation today, the patient's main complaint was lack of appetite. She states that she simply has not been able to tolerate much of anything for the last 5-6 days. She believes that some of the staff may think that the reason for this is psychiatric, but she herself is skeptical of this explanation. The patient was pleasant on interview. She admits to some dysphoria due to the great length of her hospitalization and the complications of her various medical problems. Speech, however, was fluent. Affect was constricted. Thought content focused primarily on somatic concerns. Sensorium is clear. DIAGNOSTIC IMPRESSION: AXIS I: Adjustment disorder with depressive features. RECOMMENDATIONS: 1. The patient is not at all interested in taking any type of antidepressants or psychotropic medications. I did discuss the possibility of using Periactin as an appetite stimulant, as she did seem amenable to this. If other measures are unsuccessful, this may be considered. 2. We will remain available as needed. TRANSINT:[id number] Voice Confirmation ID: [id number] DOCUMENT ID: [id number] KELLI TRIANA III, MD at 2152 CC: [id number] DICTATION DATE: 08/15/17 1301 ASSEMBLY ASSOCIATE: 08/15/17 1316 ADM IN [facility] [address] [place] [address]
[2017-08-16] VITALS: BP 126/74
--- NOTE | 2017-08-16 02:19 | NUR ---
CHANGED ALL TUBING PER CHANGE SCHEDULE. ALL NEW TUBING MARKED WITH NEXT DUE DATE.
[2017-08-16 04:00] VITALS: BP 150/76
[2017-08-16 04:19] LABS: ANION GAP 11.9 mmol/L (8-16); CALCIUM 8.7 mg/dL (8.5-10.1); CREATININE - SERUM 1.2 mg/dL (0.6-1.3); POTASSIUM - SERUM 3.9 mmol/L (3.5-5.1)
--- NOTE | 2017-08-16 07:36 | NUR ---
PT IS LYING IN BED, NO SIGNS OF DISTRESS, BED IN LOW POSITION, CALL LIGHT IN REACH, VOICED NO NEEDS AT THIS TIME, CONTINUE WITH PLAN OF CARE
[2017-08-16 09:38] VITALS: BP 147/74
[2017-08-16 11:52] VITALS: BP 139/50
[2017-08-16 16:41] VITALS: BP 140/52
--- NOTE | 2017-08-16 19:35 | NUR ---
PATIENT RESTING IN BED AND DENIES NEEDS AT THIS TIME. BED IN LOWEST POSITION AND CALL LIGHT WITHIN REACH. ENCOURAGED THE PT TO CALL IF SHE HAS NEEDS.
[2017-08-16 20:00] VITALS: BP 145/58
[2017-08-17] VITALS: BP 138/83; BP 146/71
--- NOTE | 2017-08-17 01:30 | NUR ---
TELE 88 SR
[2017-08-17 08:08] LABS: BASOPHILS 0 % (0-2); HEMATOCRIT 27.7 % (36.0-48.0); HEMOGLOBIN 8.4 g/dL (12-16); IMMATURE GRANULOCYTES 0.3 % (0-5); LYMPHOCYTES 28.3 % (15-50); MCH 23.4 pg (26.0-34.0); MCHC 30.3 g/dL (31.0-37.0); MCV 77.2 fL (80.0-100.0); MEAN PLATELET VOLUME 9.9 fL (7.4-10.4); MONOCYTES 8.6 % (2-11); NEUTROPHILS 59.8 % (40-80); PLATELET COUNT 229 10x3/uL (130-400); RBC 3.59 10x6/uL (4.00-5.40); RDW 21.1 % (11.5-14.5)
[2017-08-17 08:24] LABS: ALBUMIN 2.3 g/dL (3.4-5.0); ANION GAP 12.7 mmol/L (8-16); BILIRUBIN - TOTAL 0.29 mg/dL (0.2-1.3); CALCIUM 9.2 mg/dL (8.5-10.1); CARBON DIOXIDE 27.4 mmol/L (21.0-32.0); PHOSPHOROUS 2.4 mg/dL (2.5-4.9); POTASSIUM - SERUM 4.1 mmol/L (3.5-5.1); PROTEIN - SERUM 6.4 g/dL (6.4-8.2)
[2017-08-17 09:02] VITALS: BP 148/80
--- NOTE | 2017-08-17 09:30 | NUR ---
MORNING MEDS ADMINISTERED AT THIS TIME. CURRENT PHOSPHORUS LEVEL 2.4. ATTEMPTED TO ADMINISTER PO PHOS, BUT PT STATED, "IT MAKES ME THROW UP." TOLD HER WE WOULD GIVE IT IV INSTEAD THEN. PHARMACY CALLED FOR DOSAGE.
[2017-08-17 12:19] VITALS: BP 152/71
--- NOTE | 2017-08-17 15:15 | NUR ---
RESTING QUIETLY IN BED. DENIES NEEDS. NO CHANGES NOTED.
[2017-08-17 20:00] VITALS: BP 157/82
--- NOTE | 2017-08-17 20:30 | NUR ---
PATIENT RESTING IN BED WITH GUEST AT BEDSIDE. PT DENIES NEEDS AT THIS TIME. BED IN LOWEST POSITION AND CALL LIGHT WITHIN REACH. ENCOURAGED THE PT TO CALL IF SHE HAS NEEDS.
[2017-08-18] VITALS: BP 138/76
[2017-08-18 04:00] VITALS: BP 142/77
[2017-08-18 06:40] LABS: ALBUMIN 2.7 g/dL (3.4-5.0); ALKALINE PHOSPHATASE 92 U/L (46-116); ALT (SGPT) 23 U/L (10-68); CALCIUM 8.2 mg/dL (8.5-10.1); CARBON DIOXIDE 31.6 mmol/L (21.0-32.0); CHLORIDE - SERUM 109 mmol/L (98-107); MAGNESIUM - SERUM 1.9 mg/dL (1.8-2.4); POTASSIUM - SERUM 3.7 mmol/L (3.5-5.1); PROTEIN - SERUM 5.6 g/dL (6.4-8.2); SODIUM 145 mmol/L (136-145)
[2017-08-18 06:43] LABS: CALC OSMOLALITY 291 mosm/kg (275-300); CREATININE - SERUM 0.7 mg/dL (0.6-1.3); GLUCOSE 158 mg/dL (74-106); PHOSPHOROUS 3.1 mg/dL (2.5-4.9); UREA NITROGEN 12 mg/dL (7-18); eGFR NON AFRICAN AMERICAN > 90 mL/min (90-120)
[2017-08-18 06:58] LABS: BASOPHILS 0.1 % (0-2); EOSINOPHILS 0 % (0-7); HEMOGLOBIN 9.4 g/dL (12-16); IMMATURE GRANULOCYTES 2.2 % (0-5); LYMPHOCYTES 7.9 % (15-50); MCH 24.6 pg (26.0-34.0); MCHC 30.3 g/dL (31.0-37.0); MEAN PLATELET VOLUME 10.2 fL (7.4-10.4); MONOCYTES 9.8 % (2-11); RBC 3.82 10x6/uL (4.00-5.40); RDW 19.2 % (11.5-14.5)
[2017-08-18 07:03] LABS: MCV 81.2 fL (80.0-100.0); PLATELET COUNT 161 10x3/uL (130-400); WBC 11.1 10x3/uL (4.8-10.8)
--- NOTE | 2017-08-18 08:15 | NUR ---
PT RESTING IN BED, ASSESSMENT COMPLETE. PT DENIES NEEDS AT THIS TIME. WCTM.
[2017-08-18 08:28] VITALS: BP 150/88
[2017-08-18 13:18] VITALS: BP 132/72
[2017-08-18 13:58] LABS: BASOPHILS 0.2 % (0-2); EOSINOPHILS 3.5 % (0-7); IMMATURE GRANULOCYTES 0.7 % (0-5); MCH 23.5 pg (26.0-34.0); MCHC 30.8 g/dL (31.0-37.0); MEAN PLATELET VOLUME 9.5 fL (7.4-10.4); MONOCYTES 9.7 % (2-11); NEUTROPHILS 55.9 % (40-80); RDW 21.2 % (11.5-14.5)
[2017-08-18 14:02] LABS: MCV 76.5 fL (80.0-100.0); PLATELET COUNT 231 10x3/uL (130-400); WBC 4.3 10x3/uL (4.8-10.8)
[2017-08-18] MEDS ORDERED: LOPRESSOR25 MG PO (14:05)
[2017-08-18] MEDS ORDERED: MARINOL2.5 MG PO (14:06)
[2017-08-18] MEDS ORDERED: LEVOFLOXAC750 MG/150 IV (14:19)
[2017-08-18] MEDS ORDERED: ROCEPHIN 1 GM/D51 G1 IV (14:19)
[2017-08-18] MEDS ORDERED: LEVAQUIN750 MG PO (15:37)
[2017-08-18] MEDS ORDERED: KEFLEX500 MG PO (15:37)
--- NOTE | 2017-08-18 16:21 | NUR ---
CM REASSESSMENT NOTE: PATIENT IS DISCHARGING HOME TODAY/FAMILY DRIVING HER. PATIENT REFUSED IV ANTIBIOTICS AND IS BEING PLACED ON PO. PATIENT DID NOT WANT HOME HEALTH.
== END 2017-08-18 18:51 | disposition home or self-care (01) | DRG 371 ==
LOC: D.ER 05:15 → D.MS 11:20 → D.SDCHOLD 08-04 14:50 → D.MS 08-04 14:54
PROVIDERS: Emergency Medicine; Family Medicine; General Practice; Internal Medicine Pulmonary Disease; Specialist; ADMIT Surgery
PROC: 0W9G30Z Drainage of Peritoneal Cavity with Drainage Device, Percutaneous Approach (ICD-10-PCS; principal; 2017-08-01 11:45)
PROC: 0W9B30Z Drainage of Left Pleural Cavity with Drainage Device, Percutaneous Approach (ICD-10-PCS; 2017-08-06)
DX: K65.1 Peritoneal abscess (principal); J86.9 Pyothorax without fistula; E87.1 Hypo-osmolality and hyponatremia; J90 Pleural effusion, not elsewhere classified; J98.11 Atelectasis; E46 Unspecified protein-calorie malnutrition; Z98.84 Bariatric surgery status; I10 Essential (primary) hypertension; E06.3 Autoimmune thyroiditis

== ENCOUNTER 2017-08-27 01:28 | Emergency (ER) | payer BC ==
[~2017-08-27 01:28] MED LIST changes: +KEFLEX500 MG PO; +LEVAQUIN750 MG PO; +LEVOFLOXAC750 MG/150 IV; +LOPRESSOR25 MG PO; +MARINOL2.5 MG PO; +ROCEPHIN 1 GM/D51 G1 IV
[2017-08-27 02:13] LABS: BASOPHILS 0 % (0-2); EOSINOPHILS 0.9 % (0-7); HEMATOCRIT 32.1 % (36.0-48.0); IMMATURE GRANULOCYTES 0.7 % (0-5); LYMPHOCYTES 23.7 % (15-50); MCH 22.7 pg (26.0-34.0); MCHC 31.2 g/dL (31.0-37.0); MCV 72.8 fL (80.0-100.0); MEAN PLATELET VOLUME 9.8 fL (7.4-10.4); MONOCYTES 7.8 % (2-11); NEUTROPHILS 66.9 % (40-80); RBC 4.41 10x6/uL (4.00-5.40); RDW 21.8 % (11.5-14.5); WBC 5.8 10x3/uL (4.8-10.8)
[2017-08-27 02:15] LABS: PLATELET COUNT 323 10x3/uL (130-400)
[2017-08-27 02:28] LABS: ALBUMIN 3.1 g/dL (3.4-5.0); ANION GAP 14.5 mmol/L (8-16); BILIRUBIN - TOTAL 0.42 mg/dL (0.2-1.3); CARBON DIOXIDE 27.4 mmol/L (21.0-32.0); CREATININE - SERUM 1.3 mg/dL (0.6-1.3); PROTEIN - SERUM 8.2 g/dL (6.4-8.2)
[2017-08-27 02:30] LABS: POTASSIUM - SERUM 2.9 mmol/L (3.5-5.1)
[2017-08-27 06:15] LABS: HCG URINE NEGATIVE (NEGATIVE)
[2017-08-27 06:25] LABS: APPEARANCE SLT CLOUDY (CLEAR); BILIRUBIN NEGATIVE (NEGATIVE); COLOR YELLOW (YELLOW); GLUCOSE NEGATIVE (NEGATIVE); KETONE NEGATIVE (NEGATIVE); NITRITE NEGATIVE (NEGATIVE); PROTEIN TRACE mg/dL (NEGATIVE); SPECIFIC GRAVITY 1.015 (1.005-1.020); UROBILINOGEN NORMAL (NORMAL)
[2017-08-27 06:26] LABS: AMORPHOUS SEDIMENT <1+ /lpf (NONE SEEN); BACTERIA MODERATE /hpf (NONE SEEN); EPITHELIAL CELLS 0-5 /hpf (0-5); GRANULAR CAST OCC /lpf (NONE SEEN); HYALINE CAST 0-5 /lpf (NONE SEEN); MUCUS >1+ /lpf (NONE SEEN); WHITE CELLS - URINE 0-5 /hpf (0-5)
== END 2017-08-27 06:13 | disposition home or self-care (01) ==
LOC: D.ER 01:28
PROVIDERS: Emergency Medicine
DX: R55 Syncope and collapse (principal); R00.0 Tachycardia, unspecified